=== PATIENT | female | born 1990 | race African-American/Black ===

== ENCOUNTER 2020-10-10 12:11 | Emergency (ER) | payer OTHER, SELFPAY ==
[2020-10-10 12:22] VITALS: BP 119/73; PULSE 88; RESP 18; TEMP 36.7; O2SAT 100; BMI 22.8
--- NOTE | 2020-10-10 13:50 | XR_ITS ---
EXAMINATION: XR LUMBOSACRAL SPINE CLINICAL INFORMATION: Lifting at work. Pain COMPARISON: None TECHNIQUE: Three views of the lumbosacral spine. FINDINGS: Bones are normal anatomic alignment with mild straightening of the normal lumbar lordosis. This can be seen secondary to positioning or to muscle spasm which could also create this straightening. No acute fracture or spondylolisthesis. Vertebral body heights and disc heights are preserved. Paravertebral soft tissues and bowel gas pattern unremarkable. XR/XR lumbar spine 2-3V IMPRESSION: Mild straightening of the normal lumbar lordosis possibly due to positioning or muscular spasm. No acute process otherwise.
--- NOTE | 2020-10-10 14:09 | ED.BACK ---
HPI - Back Pain/Injury General Chief Complaint: Back Pain/Injury Stated Complaint: back injury - work related Time Seen by Provider: 10/10/20 13:39 Source: patient Mode of arrival: ambulatory Limitations: no limitations History of Present Illness HPI Narrative: 29-year-old female previously healthy here with low back pain since lifting heavy box last night at work. 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 Pain does not radiate. There is no numbness or tingling. No bowel or bladder incontinence. Patient is ambulatory. No fevers or chills. No urinary symptoms MD elicited complaint: back pain Onset (ago): day(s) (<24hrs) Timing: intermittent Severity: mild Similar Symptoms Previously: No Quality: aching Location: lumbar spine Radiation: none Exacerbating factors: lifting Relieving factors: immobilization Context: while lifting Related Data Previous Rx's Medication Instructions Recorded ibuprofen 600 mg PO TID PRN #20 tab 10/10/20 lidocaine [Lidoderm] 1 patch TOPICAL DAILY #15 ea 10/10/20 Allergies Allergy/AdvReac Type Severity Reaction Status Date / Time No Known Allergies Allergy Verified 10/10/20 12:21 Review of Systems Review of Systems: Yes all other systems are reviewed and are negative Constitutional: Constitutional: Reports no additional constitutional complaints, Denies body ache(s), Denies chills, Denies fever(s), Denies headache(s) and Denies weakness Eyes: Eyes: Reports no additional eye complaints and Denies change in vision ENT: Reports system reviewed and no additional complaints, except as documented, Denies dizziness, Denies headache(s), Denies nasal congestion, Denies nasal discharge and Denies neck pain Cardiovascular: Cardiovascular: Reports no additional cardiovascular complaints, Denies chest pain, Denies leg edema and Denies dyspnea Respiratory: Respiratory: Reports no additional respiratory complaints, Denies cough and Denies dyspnea Gastrointestinal: Gastrointestinal: Reports no additional gastrointestinal complaints, Denies abdominal pain, Denies diarrhea, Denies nausea and Denies vomiting Genitourinary: Genitourinary: Reports no additional female genitourinary complaints and Denies urinary incontinence Musculoskeletal: Musculoskeletal: Reports no additional musculoskeletal complaints, Reports back pain, Denies arthralgias, Denies joint swelling, Denies neck pain, Denies numbness and Denies tingling Integumentary/Breasts: Skin/Breast: Reports system reviewed and no additional complaints, except as docu and Denies rash Neurologic: Reports system reviewed and no additional complaints, except as documented, Denies Abnormal speech present, Denies dizziness, Denies headache(s), Denies numbness, Denies tingling and Denies weakness PMFSH Past Medical History Attestation statement: The following information was validated with the patient. Source: old records reviewed and nursing notes reviewed Social History Social History Advance Directives: No Advance Directives Information Provided: Yes Physical Exam Vital Signs: Vital Signs: Last Vital Signs Temp 98.1 F 10/10/20 12:22 Pulse 88 10/10/20 12:22 Resp 18 10/10/20 12:22 BP 119/73 10/10/20 12:22 Pulse Ox 100 10/10/20 12:22 Body Mass Index 22.8 Const: General: cooperative, healthy appearing, comfortable and no acute distress Orientation/consciousness: patient oriented x3 Limitations: no limitations HENMT: Head: Yes normal to inspection Ears: hearing grossly normal bilaterally General nose exam: Normal external nose present Face and sinus: Yes normal facial exam Mouth: Normal oral and palatal mucosa present Throat: Yes posterior oropharynx normal Eyes: General: appearance normal, both eyes and all related structures Pupils: Equal, round and reactive pupils present Neck: Neck: Yes normal visual inspection Chest: Chest palpation & inspection: normal inspection of the chest Resp: Effort & Inspection: normal respiratory effort Auscultation: clear to auscultation bilaterally Cardio: Rate: regular rate Rhythm: regular rhythm Peripheral pulses: Peripheral pulses 2+ throughout GI: Inspection: Yes normal to inspection Palpation (GI): Soft to palpation and nontender Auscultation: normal bowel sounds Back/Spine/Pelvis: Other: Lumbar mild midline and moderate bilateral soft tissue tenderness. There is no step-offs or deformities. Full range of motion. Thoracic/Lumbar Spine: thoracic and lumbar spine normal to inspection Skin: General skin exam: no rashes or lesions noted Neuro: General: patient oriented x3, no focal motor deficits and normal sensation to monofilament Cranial nerves: Yes Equal, round and reactive pupils present Cognition (Neuro): normal cognition Speech: No Abnormal speech present Gait exam (Neuro): Normal gait present Motor exam (neuro): 5/5 motor strength present throughout Sensory Exam: Normal double simultaneous stimulation for sensation Deep tendon reflexes (DTR's): Right patellar reflex intensity grade: 2+, Left patellar reflex intensity grade: 2+, Right ankle reflex intensity grade: 2+ and Left ankle reflex intensity grade: 2+ Extrem: General: Yes normal to inspection Course Course Course Narrative: Low back pain status post lifting heavy object. No red flag symptoms or neurological deficits. Will check imaging 1445-x-rays negative. Likely lumbar strain. Reviewed worrisome signs and symptoms and when to return to the emergency department. Comfortable discharge home. MDM - Back Pain/Injury Medical Records Attestation: I reviewed the patient's medical records. Lab Data Attestation: I reviewed the patient's lab results. Imaging Data lumbar xray: Attestation: I personally reviewed and interpreted this imaging study as follows: Radiologist's impression: EXAMINATION: XR LUMBOSACRAL SPINE CLINICAL INFORMATION: Lifting at work. Pain COMPARISON: None TECHNIQUE: Three views of the lumbosacral spine. FINDINGS: Bones are normal anatomic alignment with mild straightening of the normal lumbar lordosis. This can be seen secondary to positioning or to muscle spasm which could also create this straightening. No acute fracture or spondylolisthesis. Vertebral body heights and disc heights are preserved. Paravertebral soft tissues and bowel gas pattern unremarkable. XR/XR lumbar spine 2-3V IMPRESSION: Mild straightening of the normal lumbar lordosis possibly due to positioning or muscular spasm. No acute process otherwise. Discharge Plan Discharge Clinical Impression: Strain of lumbar region Qualifiers: Encounter type: initial encounter Qualified Code(s): S39.012A - Strain of muscle, fascia and tendon of lower back, initial encounter Patient Disposition: Home, Self-Care Instructions: Low Back Strain (ED) Additional Instructions: Heat or ice Gentle stretching No heavy lifting or bending Try obtaining a chiroprater Prescriptions: New lidocaine [Lidoderm] 5 % adhesive patch,medicated 1 patch topical DAILY Qty: 15 RF: 0 ibuprofen 600 mg tablet 600 mg PO TID PRN (Reason: pain) Qty: 20 RF: 0 Referrals: Physician,Unknown [Primary Care Provider] - 2 days Stand Alone Forms: Work/School Release Interventions: ED Discharge Assessment Last Done: 10/10/20 15:01 Discharge Date/Time: 10/10/20 15:03
== END 2020-10-10 15:03 | disposition home or self-care (01) ==
PROVIDERS: Emergency Provider Emergency Medicine
DX: S39.012A Strain of muscle, fascia and tendon of lower back, initial encounter (principal); X50.0XXA Overexertion from strenuous movement or load, initial encounter; Y93.89 Activity, other specified; Y92.512 Supermarket, store or market as the place of occurrence of the external cause; Y99.0 Civilian activity done for income or pay
CPT/HCPCS: 72100; 99283

== ENCOUNTER 2023-12-17 08:25 | Inpatient (IN) | payer MEDICAID, SELFPAY ==
[2023-12-17] VITALS (10 sets, daily range): BP systolic 127–149; BP diastolic 74–107; PULSE 108–136; RESP 16–19; TEMP 36.2–37.1; O2SAT 98–100; BMI 21.4; BMI 20.4
--- NOTE | 2023-12-17 08:44 | ECG_ITS ---
Test Reason : OVERDOSE Blood Pressure : / mmHG Vent. Rate : 121 BPM Atrial Rate : 121 BPM P-R Int : 128 ms QRS Dur : 074 ms QT Int : 414 ms P-R-T Axes : 054 011 -09 degrees QTc Int : 587 ms Sinus tachycardia Low voltage QRS ST & T wave abnormality, consider inferior ischemia ST & T wave abnormality, consider anterolateral ischemia Abnormal ECG No previous ECGs available Referred By: Carlos Botello Electronically Signed By:ELISABET GILES
--- NOTE | 2023-12-17 08:48 | ED.OVERDOSE ---
HPI - Overdose General Chief Complaint: Overdose Stated Complaint: SEC 12, SI PER EMS Time Seen by Provider: 12/17/23 08:31 Source: patient Mode of arrival: ambulatory History of Present Illness HPI Narrative: pt presented by EMS after overdose Benadryl,she states she took #50 tablets 25 mg of Benadryl around 7:20 AM complaint: intentional overdose Onset (ago): hour(s) (1) Intent: suicide attempt Associated symptoms: depression Related Data Home Medications Medication Instructions Recorded Confirmed fluoxetine 20 mg tablet 20 mg PO DAILY 12/17/23 12/17/23 Allergies Allergy/AdvReac Type Severity Reaction Status Date / Time No Known Allergies Allergy Verified 12/17/23 09:03 Review of Systems Constitutional: Constitutional: Reports no additional constitutional complaints ENT: Reports system reviewed and no additional complaints, except as documented Cardiovascular: Cardiovascular: Reports no additional cardiovascular complaints [facility] Past Medical History [facility] Narrative: depression Source: unable to obtain Social History Social History Patient Tobacco Use Status: Never used Tobacco Smoked in Last 30 Days: No Use of substances other than those prescribed or required for medical reasons: No Advance Directives: No Advance Directives Information Provided: No Nutrition Risks: No Nutritional Risk Patient : No Physical Exam Vital Signs: Vital Signs: Last Vital Signs Temp 97.2 F 12/17/23 08:54 Pulse 116 H 12/17/23 12:49 Resp 18 12/17/23 12:49 BP 143/88 H 12/17/23 12:49 Pulse Ox 99 12/17/23 10:20 O2 Del Method Room Air 12/17/23 10:20 BMI result Body Mass Index 21.4 Const: General: cooperative and no acute distress Nutritional Appearance: average body habitus Orientation/consciousness: patient oriented x3 Limitations: no limitations HEENT: Head: Yes normal to inspection Ears: hearing grossly normal bilaterally General nose exam: Normal external nose present Face and sinus: Yes normal facial exam Mouth: Normal oral and palatal mucosa present Neck: Neck: Yes normal visual inspection Chest: Chest palpation & inspection: normal inspection of the chest Resp: Effort & Inspection: normal respiratory effort Auscultation: clear to auscultation bilaterally Cardio: Jugular venous distension: no JVD Rate: regular rate Rhythm: regular rhythm GI: Inspection: Yes normal to inspection Palpation (GI): Soft to palpation, not firm, nontender and no guarding Percussion: Yes normal to percussion Skin: General skin exam: no rashes or lesions noted and elasticity normal Neuro: General: patient oriented x3 Course Reevaluation(s) Reevaluation #1: Spoke with poison control,charcoal not given because drowsy Time: 09:19 Reevaluation #2: hallucinating now Time: 10:19 Medications Administered Generic Name Dose Route Start Last Admin Trade Name Freq PRN Reason Stop Dose Admin Enoxaparin Sodium 40 mg 12/17/23 12:15 12/17/23 12:48 Enoxaparin Sodium 40 Mg/0.4 Ml Syringe SUBCUT 40 mg Q24H YONATHAN Administration Discontinued Medications Generic Name Dose Route Start Last Admin Trade Name Freq PRN Reason Stop Dose Admin Sodium Chloride 1,000 mls @ 999 mls/hr 12/17/23 08:45 12/17/23 12:46 Ns IVCONT 12/17/23 09:45 Infused .Q1H1M YONATHAN Infusion Sodium Chloride 1,000 mls @ 999 mls/hr 12/17/23 08:45 12/17/23 10:49 Ns IVCONT 12/17/23 09:45 Infused .Q1H1M YONATHAN Infusion Sodium Chloride 1,000 mls @ 999 mls/hr 12/17/23 10:15 12/17/23 12:46 Ns IVCONT 12/17/23 11:15 999 mls/hr .Q1H1M YONATHAN Administration Magnesium Sulfate 2 gm in 50 mls @ 25 mls/hr 12/17/23 12:53 12/17/23 14:55 Magnesium Sulfate/H2o IV 12/17/23 14:52 Infused ONCE ONE Infusion Potassium Chloride 40 meq 12/17/23 12:53 12/17/23 13:02 Potassium Chloride Packet 20 Meq Packet PO 12/17/23 12:54 40 meq ONCE ONE Administration Medical Decision Making Medical Decision Making MDM Narrative: pt presented with benadryl OD will establish IV EKG/labs /fluids support care Differential Diagnosis Differential Diagnoses: The differential diagnosis associated with the presentation includes Overdose benadryl Admission/Observation Consideration of admission/observation: Escalation of care including admission/observation considered Consult Healthcare Provider Management of the patient was discussed with: Hospitalist Poison control Lab Data MDM Lab Attestation statement: I reviewed the patient's lab results. 12/17/23 09:25 12/17/23 13:34 Labs: Lab Results 12/17/23 12/17/23 Range/Units 09:25 11:58 WBC 10.8 (4.8-10.8) X10*3/uL RBC 4.94 (4.20-5.50) X10*6/uL Hgb 12.8 (12.0-16.0) g/dl Hct 40.3 (37.0-47.0) % MCV 81.6 (80.0-98.0) fL MCH 25.9 L (27.0-33.0) pg MCHC 31.8 (31.0-35.0) g/dl RDW 13.3 (11.0-16.0) % Plt Count 215 (160-400) X10*3/uL MPV 10.7 (9.4-12.3) fL Immature Gran % (Auto) 0.2 (0.0-0.4) % Neut % (Auto) 77.2 H (45-73) % Lymph % (Auto) 15.6 L (20-40) % Arthur % (Auto) 5.8 (2-11) % Eos % (Auto) 1.0 (0-4) % Baso % (Auto) 0.2 (0-2) % Lymph # (Auto) 1.7 (1.2-4.9) X10*3/uL Arthur # (Auto) 0.6 (0.1-1.2) X10*3/uL Eos # (Auto) 0.1 (0.0-0.4) X10*3/uL Baso # (Auto) 0.0 (0.0-0.2) X10*3/uL Abs Immat Gran (auto) 0.02 (0.00-0.03) X10*3/uL Absolute Neuts (auto) 8.3 (2.0-8.3) x10*3/uL Absolute Nucleated RBC 0.000 (0.0-0.012) X10*3/uL Nucleated RBC % (auto) 0.0 (0.0-0.2) /100WBC Sodium 139 (135-145) mmol/L Potassium 3.4 (3.3-5.1) mmol/L Chloride 112 H (96-108) mmol/L Carbon Dioxide 14 L (22-29) mmol/L Anion Gap 16 (12-20) BUN 12 (9-16) mg/dL Creatinine 0.73 (0.5-1.4) mg/dL Estim Creat Clear Calc 85.0 Estimated GFR > 60 Random Glucose 79 (60-115) mg/dL Calcium 8.8 (8.4-10.2) mg/dL Magnesium 1.9 (1.6-2.6) mg/dL Total Bilirubin 0.2 (0.0-1.0) mg/dL AST 34 H (5-31) U/L ALT 23 (0-31) U/L Alkaline Phosphatase 66 (39-117) U/L Total Protein 7.0 (6.5-8.0) g/dL Albumin 3.7 (3.5-5.0) g/dL Beta HCG, Quant < 2 mIU/mL Salicylates < 5.0 L (15-30) mg/dL Urine Opiates Screen Not Detected (Not Detect) Urine Fentanyl Screen Not Detected (Not Detect) Acetaminophen < 3 (<30) mcg/mL Ur Barbiturates Screen Not Detected (Not Detect) Ur Phencyclidine Scrn Not Detected (Not Detect) Ur Amphetamines Screen Not Detected (Not Detect) U Benzodiazepines Scrn Not Detected (Not Detect) Urine Cocaine Screen Not Detected (Not Detect) U Marijuana (THC) Screen Not Detected (Not Detect) Ethyl Alcohol < 10 mg/dL Independent Interpretation I performed an independent interpretation of an: EKG Interpretation: sinus tachycardia Independent Historian Clinical information obtained from an independent historian. History obtained from or confirmed by: EMS Critical Care Time Critical Care Time Critical Care Time: Yes Total Critical Care Time: 60 Attestation: Benadryl OD with metabolic acidosis Discharge Plan Discharge Clinical Impression: Metabolic acidosis Intentional diphenhydramine overdose Qualifiers: Encounter type: initial encounter Qualified Code(s): T45.0X2A - Poisoning by antiallergic and antiemetic drugs, intentional self-harm, initial encounter Patient Disposition: Admitted As Inpatient
[2023-12-17] MEDS: 0.9 % Sodium Chloride 1,000 ML 999 ML IVCONT ×3 (09:25→12:46)
--- NOTE | 2023-12-17 09:27 | PC.NURSE ---
pt is alert but drowsy, pt was able to state she was in [place] but not able to state that it was a hospital, knew that it is Feb, pupils pin point, skin appropriate for ethnicity, respirations even and unlabored, tachy on the monitor at about 124, pt did state she took about 50 tabs of 25mg Benadryl in the intent of suicidal ideation, reports stress at home, pt changed over by security and belongings secured in locker 4, sitter in place.
[2023-12-17 09:33] LABS: MANUAL DIFF FLAG NO
[2023-12-17 09:35] LABS: Basophils Percent Auto 0.2 % (0-2); Eosinophils Absolute Auto 0.1 X10*3/uL (0.0-0.4); Hematocrit 40.3 % (37.0-47.0); Hemoglobin 12.8 g/dl (12.0-16.0); Imm Gran Abs Auto 0.02 X10*3/uL (0.00-0.03); Imm Gran Pct Auto 0.2 % (0.0-0.4); Lymphocytes Absolute Auto 1.7 X10*3/uL (1.2-4.9); Lymphocytes Percent Auto 15.6 % (20-40); Mean Corpuscular HGB Conc 31.8 g/dl (31.0-35.0); Mean Corpuscular Hemoglobin 25.9 pg (27.0-33.0); Mean Corpuscular Volume 81.6 fL (80.0-98.0); Mean Platelet Volume 10.7 fL (9.4-12.3); Monocytes Absolute Auto 0.6 X10*3/uL (0.1-1.2); Monocytes Percent Auto 5.8 % (2-11); Neutrophils Absolute Auto 8.3 x10*3/uL (2.0-8.3); Neutrophils Percent Auto 77.2 % (45-73); Platelet Count 215 X10*3/uL (160-400); Red Blood Count 4.94 X10*6/uL (4.20-5.50); Red Cell Distribution Width 13.3 % (11.0-16.0); White Blood Count 10.8 X10*3/uL (4.8-10.8)
[2023-12-17 09:53] LABS: Acetaminophen LAB < 3 mcg/mL (<30); Salicylate < 5.0 mg/dL (15-30)
[2023-12-17 09:56] LABS: Magnesium 1.9 mg/dL (1.6-2.6)
--- NOTE | 2023-12-17 10:21 | PC.NURSE ---
pt is alert but sluggish to answer questions, appears slightly confused and possibly hallucinating, grabbing at things at times according to the sitter and just looking around very confused
[2023-12-17 10:37] LABS: Alanine Aminotransferase 23 U/L (0-31); Albumin Level 3.7 g/dL (3.5-5.0); Alkaline Phosphatase 66 U/L (39-117); Anion Gap 16 (12-20); Aspartate Amino Transferase 34 U/L (5-31); Bilirubin Total 0.2 mg/dL (0.0-1.0); Blood Urea Nitrogen 12 mg/dL (9-16); Calcium 8.8 mg/dL (8.4-10.2); Carbon Dioxide 14 mmol/L (22-29); Chloride 112 mmol/L (96-108); Estimated Glomerular Filt Rate > 60; Ethanol < 10 mg/dL; Glucose Random 79 mg/dL (60-115); HCG Quantitative < 2 mIU/mL; Potassium 3.4 mmol/L (3.3-5.1); Sodium 139 mmol/L (135-145)
--- NOTE | 2023-12-17 10:39 | ECG_ITS ---
Test Reason : OVERDOSE Blood Pressure : / mmHG Vent. Rate : 122 BPM Atrial Rate : 122 BPM P-R Int : 128 ms QRS Dur : 070 ms QT Int : 412 ms P-R-T Axes : 065 056 -03 degrees QTc Int : 587 ms Sinus tachycardia Low voltage QRS Diffuse ST depression inferior and anterolateral leads Abnormal ECG When compared with ECG of 17-DEC-2023 08:56, No significant changes seen Referred By: Carlos Botello Electronically Signed By:ELISABET GILES
--- NOTE | 2023-12-17 11:19 | PHA.MEDREC ---
Pharmacy Consult ? Medication Reconciliation Pharmacy has completed the medication reconciliation.
--- NOTE | 2023-12-17 11:25 | PC.NURSE ---
pt reporting that she needs to ambulated the pt with with two assists, pt very unstable/shaky on her feet, was unable to urinate, did a bladder scan and 722, attempting a straight cath per aslhley admitting PA
[2023-12-17 12:13] LABS: Amphetamine Screen Urine Not Detected (Not Detect); Barbiturates, Urine Not Detected (Not Detect); Benzodiazepines Screen Urine Not Detected (Not Detect); Cannabinoid Screen Urine Not Detected (Not Detect); Cocaine Screen Urine Not Detected (Not Detect); Fentanyl, urine Not Detected (Not Detect); Opiate Screen Urine Not Detected (Not Detect); Phencyclidine Screen Urine Not Detected (Not Detect)
--- NOTE | 2023-12-17 12:16 | PM.IMHP ---
History of Present Illness Date of Service: 12/17/23 Attending physician on admission: [facility] Chief Complaint: suicide attempt 33 year old female with history of MDD presented to the ED earlier today following an intentional benadryl overdose this morning at around 730am. The patient is somewhat confused and appears to be hallucinating, though denies this, and states she has been depressed for about a month with increased stress and attempted to take her life this morning. She denies any pain at this time and has no complaints. On arrival tachycardic to the 120s, afebrile, no hypotension or hypoxia. Hematology studies unremarkable. Renal function normal, electrolyte levels normal except for bicarb 14, chloride 112. Urine tox screen negative, ethyl alcohol level below detectable limits salicylic level below detectable limits. Acetaminophen level negative. Initial EKG showed sinus tachycardia, rate 121, no jazz or depression. Repeat EKG showed sinus tachycardia, rate 122, with nonspecific t wave abnormality which replaced the minimal t wave inversions in initial ekg. In the ED, received 2 L IV NS. Bladder scan reveal >800ml and was straight cath'd in the ED. Does express sensation to urinate. Poison control was contacted recommending activated charcoal but at the time, pt was too lethargic for administrationa nd supportive care was advised. Review of Systems Review of Systems: General: No fevers, malaise, unintentional weight loss HEENT: No blurred vision, diplopia. No sore throat, nasal congestion, rhinorrhea, sinus pain, ear pain Cardiovascular: No chest pain, palpitations, or leg edema Respiratory: No shortness of breath, wheezing, cough GI: No abdominal pain, nausea, vomiting, diarrhea, constipation, melena, hematochezia : No dysuria, hematuria, increased urinary frequency, decreased urinary output MSK: No myalgia, back pain Neuro: No headaches, weakness, paresthesias Skin: No rashes or lesions PMFSH Social History Household Members: Family Housing: House Comment: 1:[address] Patient Tobacco Use Status: Never used Tobacco Meds Allergies Allergy/AdvReac Type Severity Reaction Status Date / Time No Known Allergies Allergy Verified 12/17/23 09:03 Active Medications: Current Medications Acetaminophen (Acetaminophen 325 Mg Tablet) 650 mg PO Q6H PRN PRN Reason: Pain, Mild (Pain Scale 1-3) Enoxaparin Sodium (Enoxaparin Sodium 40 Mg/0.4 Ml Syringe) 40 mg SUBCUT Q24H [facility] Fluoxetine HCl (Fluoxetine Hcl 20 Mg Capsule) 20 mg PO DAILY [facility] Sodium Chloride (Ns) 1,000 mls @ 100 mls/hr IVCONT .Q10H [facility] Ondansetron HCl (Ondansetron Hcl 4 Mg/2 Ml Vial) 4 mg IVPUSH Q8H PRN PRN Reason: Nausea and Vomiting Senna (Sennosides 8.6 Mg Tablet) 17.2 mg PO BEDTIME PRN PRN Reason: Constipation Sodium Chloride (0.9 % Sodium Chloride Flush 3 Ml Syringe) 3 ml IVFLUSH QSHIFT [facility] Home Medications Medication Instructions Recorded Confirmed Last Taken Type fluoxetine 20 mg tablet 20 mg PO DAILY 12/17/23 12/17/23 Unknown History Physical Exam Vital Signs and Narrative: Vital Signs: Last Vital Signs Temp 97.2 F 12/17/23 08:54 Pulse 124 H 12/17/23 10:20 Resp 18 12/17/23 10:20 BP 127/74 12/17/23 10:20 Pulse Ox 99 12/17/23 10:20 O2 Del Method Room Air 12/17/23 10:20 BMI result Body Mass Index 21.4 Constitutional - Awake and Alert, No apparent distress Eyes - PERRLA, EOMI Cardiovascular - S1S2, RRR, No edema Respiratory - Normal lung expansion, Normal respiratory effort, No respiratory distress, CTA bilaterally Gastrointestinal - NT / ND; +BS; No rebound or guarding Extremities - no calf tenderness bilaterally, no swelling Skin - Warm/Dry Neurological - Alert & oriented x3, hyperalert, appears to be hallucinating visually but denies, moderately dilated pupils, nystagmus in all directions, CN palsy, diffuse tremors Results Labs 12/18/23 08:33 12/18/23 08:33 Labs: Laboratory Results - last 24 hr 12/17/23 12/17/23 09:25 11:58 MCV 81.6 MCH 25.9 L MCHC 31.8 RDW 13.3 Plt Count 215 MPV 10.7 Immature Gran % (Auto) 0.2 Neut % (Auto) 77.2 H Lymph % (Auto) 15.6 L [place] % (Auto) 5.8 Eos % (Auto) 1.0 Baso % (Auto) 0.2 Lymph # (Auto) 1.7 [place] # (Auto) 0.6 Eos # (Auto) 0.1 Baso # (Auto) 0.0 Abs Immat Gran (auto) 0.02 Absolute Neuts (auto) 8.3 Absolute Nucleated RBC 0.000 Nucleated RBC % (auto) 0.0 Anion Gap 16 Estim Creat Clear Calc 85.0 Estimated GFR > 60 Random Glucose 79 Calcium 8.8 Magnesium 1.9 Total Bilirubin 0.2 AST 34 H ALT 23 Alkaline Phosphatase 66 Total Protein 7.0 Albumin 3.7 Beta HCG, Quant < 2 Salicylates < 5.0 L Urine Opiates Screen Not Detected Urine Fentanyl Screen Not Detected Acetaminophen < 3 Ur Barbiturates Screen Not Detected Ur Phencyclidine Scrn Not Detected Ur Amphetamines Screen Not Detected U Benzodiazepines Scrn Not Detected Urine Cocaine Screen Not Detected U Marijuana (THC) Screen Not Detected Ethyl Alcohol < 10 Assessment and Plan (1) Anticholinergic drug overdose: Status: Acute (2) Metabolic acidosis: Status: Acute (3) Toxic metabolic encephalopathy: Status: Acute (4) Prolonged QT interval: Status: Acute Plan 33 year old female with history of MDD presented to the ED earlier today following an intentional benadryl overdose this morning at around 730am. Pt will be admitted for acute anticholinergic toxicity secondary to benadryl overdose. #Acute anticholinergic toxicity due to intentional bendryl od @730am -Activated charcoal deferred due to lethargy, now outside window. Supportive care per poison control -EKG x2 showed stable, though prolonged QTc 587 -Check EKG q4h -1mg lorazepam q4h prn tremors/aggitation -monitor on telemetry -psychiatry consult -sitter consult -seizure precautions #Prolonged Qtc -Initial and repeat EKG with Qtc 587 -Keep mag >2, K >4.0. Give 2mg IV mag and 40meq PO KCl now. Recheck ekg @230pm per poison control -seizure precautions -monitor on telemetry #Acute neurogenic bladder -due to above -bladder scan >800ml in ED, straight cath performed -does feel feel like she needs to urinate. Will hold on suarez at this time. Bladder scan and straight cath qshift prn >500ml -Consider suarez if not improving #Acute toxic metabolic encephalopathy -due to above -monitor mentation #Acute metabolic acidosis -CO2 14. Received 2L IV NS -Repeat BMP and VBG pending -Continue IV NS -follow bmp #MDD -psychiatry consult -continue prozac DVT prophylaxis- lovenox full code pt requires inpt stay at least 2 midnight for management of acute anticholinergic toxicity with neurogenic bladder, prolonged qtc, and AMS requiring close monitoring of qtc, I&O, renal fx/lytes, and eventual transfer to psychiatry once medically cleared Quality Stroke Does the patient have a stroke diagnosis?: No VTE Prior VTE?: No VTE Risk Level:: Medical - moderate - high VTE Device Contraindication: Treatment Not Indicated VTE Drug Contraindication: N/A - Med Ordered
[2023-12-17] MEDS: Enoxaparin Sodium 40 MG/0.4 ML SYRINGE SUBCUT (12:48)
[2023-12-17] MEDS: Magnesium Sulfate/H2O 2 GM/50 ML PIGGYBACK IV (13:02)
[2023-12-17] MEDS: Potassium Chloride Packet 20 MEQ PACKET 40 MEQ PO ×2 (13:02→16:55)
--- NOTE | 2023-12-17 13:16 | PC.NURSE ---
spoke to tete from poison control, recommends to repeat ekg around 1430 after the mag 2g infused and to start benzodiazepines
[2023-12-17 13:43] LABS: Venous Blood Gas Refer to POC result
[2023-12-17 13:43] LABS: VBG Base Excess -5.7 mmol/L; VBG HCO3 20 mmol/L (22-26); VBG pCO2 43 mmHg; VBG pH 7.28 (7.32-7.43); VBG pO2 39 mmHg
[2023-12-17 14:01] LABS: Anion Gap 13 (12-20); Blood Urea Nitrogen 9 mg/dL (9-16); Calcium 9.3 mg/dL (8.4-10.2); Carbon Dioxide 20 mmol/L (22-29); Chloride 113 mmol/L (96-108); Creatinine Clr Calc Pharmacy 86.2; Estimated Glomerular Filt Rate > 60; Glucose Random 111 mg/dL (60-115); Potassium 3.5 mmol/L (3.3-5.1); Sodium 142 mmol/L (135-145)
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
[2023-12-17] MEDS: Lactated Ringers 1,000 ML 100 ML IVCONT (15:12)
[2023-12-17] MEDS: LORazepam 2 MG/ML VIAL 1 MG IVPUSH ×3 (15:23→23:01)
--- NOTE | 2023-12-17 15:25 | PC.NURSE ---
pt medicated with ativan as ordered, pt extremely fidgety, pulling on blankets and other staff members reporting that pt is having visual hallucination josue
[2023-12-17] MEDS: 0.9 % Sodium Chloride Flush 3 ML SYRINGE IVFLUSH (15:29)
--- NOTE | 2023-12-17 16:00 | ECG_ITS ---
Test Reason : benadryl od Blood Pressure : / mmHG Vent. Rate : 109 BPM Atrial Rate : 109 BPM P-R Int : 142 ms QRS Dur : 064 ms QT Int : 296 ms P-R-T Axes : 046 003 010 degrees QTc Int : 398 ms Sinus tachycardia Low voltage QRS Borderline ECG No significant changes when compared with the previous EKG of same day Referred By: Angeles Sylvester Electronically Signed By:ELISABET GILES
--- NOTE | 2023-12-17 16:17 | MHC.EDTECH ---
Patient ekg taken at 1612 and was read by Provider .
[2023-12-17] MEDS: Potassium Chloride/H20 10 MEQ/100 ML PIGGYBACK 100 MEQ IV ×2 (16:55→20:14)
--- NOTE | 2023-12-17 17:03 | PC.NURSE ---
attempting to do the columbia scale, when pt is asked is she would like to killl herself or pt states it could be yes, it could be no unable to perform an accurate evaluation, pt also appears to have increased visual hallucinations pt was put on a bed barry still unable to void bladder scan performed and 578ml, van mitchell aware
--- NOTE | 2023-12-17 20:00 | ECG_ITS ---
Test Reason : benadryl od Blood Pressure : / mmHG Vent. Rate : 103 BPM Atrial Rate : 103 BPM P-R Int : 136 ms QRS Dur : 070 ms QT Int : 366 ms P-R-T Axes : 049 -04 018 degrees QTc Int : 479 ms Sinus tachycardia Low voltage QRS Borderline ECG No previous ECGs available Referred By: Angeles Sylvester Electronically Signed By:ELISABET GILES
[2023-12-18] VITALS (7 sets, daily range): BP systolic 119–140; BP diastolic 77–94; PULSE 91–107; RESP 16–20; TEMP 36.8–37.3; O2SAT 96–100
[2023-12-18] MEDS: LORazepam 2 MG/ML VIAL 1 MG IVPUSH ×3 (02:27→07:18)
[2023-12-18] MEDS: Lactated Ringers 1,000 ML 100 ML IVCONT ×3 (07:18→23:47)
[2023-12-18] MEDS: FLUoxetine HCl 20 MG CAPSULE PO (08:27)
[2023-12-18 08:49] LABS: MANUAL DIFF FLAG NO
[2023-12-18 08:52] LABS: Basophils Percent Auto 0.1 % (0-2); Eosinophils Percent Auto 0.2 % (0-4); Hematocrit 40.9 % (37.0-47.0); Hemoglobin 13.5 g/dl (12.0-16.0); Imm Gran Abs Auto 0.04 X10*3/uL (0.00-0.03); Imm Gran Pct Auto 0.3 % (0.0-0.4); Lymphocytes Absolute Auto 1.5 X10*3/uL (1.2-4.9); Lymphocytes Percent Auto 12.2 % (20-40); Mean Corpuscular Hemoglobin 26.3 pg (27.0-33.0); Mean Corpuscular Volume 79.6 fL (80.0-98.0); Mean Platelet Volume 10.1 fL (9.4-12.3); Monocytes Absolute Auto 0.7 X10*3/uL (0.1-1.2); Monocytes Percent Auto 5.9 % (2-11); Neutrophils Absolute Auto 9.7 x10*3/uL (2.0-8.3); Neutrophils Percent Auto 81.3 % (45-73); Platelet Count 254 X10*3/uL (160-400); Red Blood Count 5.14 X10*6/uL (4.20-5.50); Red Cell Distribution Width 13.8 % (11.0-16.0)
[2023-12-18 09:12] LABS: Anion Gap 13 (12-20); Blood Urea Nitrogen 5 mg/dL (9-16); Calcium 10.9 mg/dL (8.4-10.2); Carbon Dioxide 21 mmol/L (22-29); Chloride 109 mmol/L (96-108); Creatinine Clr Calc Pharmacy 79.6; Estimated Glomerular Filt Rate > 60; Glucose Random 60 mg/dL (60-115); Sodium 139 mmol/L (135-145)
--- NOTE | 2023-12-18 10:15 | ECG_ITS ---
Test Reason : qtc check, od Blood Pressure : / mmHG Vent. Rate : 107 BPM Atrial Rate : 107 BPM P-R Int : 124 ms QRS Dur : 064 ms QT Int : 306 ms P-R-T Axes : 042 -10 020 degrees QTc Int : 408 ms Sinus tachycardia Low voltage QRS Borderline ECG When compared with ECG of 18-DEC-2023 06:09, No significant change was found Referred By: Chong [facility] Electronically Signed By:ELISABET GILES
[2023-12-18] MEDS: Enoxaparin Sodium 40 MG/0.4 ML SYRINGE SUBCUT (11:39)
--- NOTE | 2023-12-18 12:00 | ECG_ITS ---
Test Reason : benadryl od Blood Pressure : / mmHG Vent. Rate : 107 BPM Atrial Rate : 107 BPM P-R Int : 144 ms QRS Dur : 066 ms QT Int : 316 ms P-R-T Axes : 042 002 032 degrees QTc Int : 421 ms Sinus tachycardia Low voltage QRS Nonspecific T wave abnormality Abnormal ECG No previous ECGs available Referred By: Angeles Sylvester Electronically Signed By:ELISABET GILES
--- NOTE | 2023-12-18 12:58 | MHC.CM.PN ---
Pt. said that she lives here when I asked where she lives, she said she lives with her mom. Call placed to pt.'s mother, Kyra Lucio, no answer. Pt. independent with ADL's, DC plan may be for psych admission. CM to follow for DC planning.
--- NOTE | 2023-12-18 13:26 | MHC.CM.PN ---
Pt said that PCP is Dr. Gomez in [place], CM contacted PCP office in [place] to determine if PCP is Yassine Gomez, pt. does not see any doctor in that office. CM to determine from pt or pt mother who PCP is.
--- NOTE | 2023-12-18 16:43 | P.PNIM_ITS ---
Subjective Subjective Date of Service: 12/19/23 Interval History: f/u on intentional overdose with benadryl, QTC is Ok per serial ECG, a bit drousy but alert Physical Exam 2 Vital Signs: Vital Signs: Last Vital Signs Temp 98.4 F 12/18/23 15:43 Pulse 100 12/18/23 15:43 Resp 20 12/18/23 15:43 BP 125/83 12/18/23 15:43 Pulse Ox 100 12/18/23 15:43 O2 Del Method Room Air 12/18/23 15:43 BMI result Body Mass Index 20.4 General: AO X 3, no acute distress Resp: CTA bilateral CVS: S1,S2,RRR GI: +BS, NT, no distention Skin: No rash Neuro: motor grossly intact Psych: appropriate affect Objective Data Active Medications Acetaminophen (Acetaminophen 325 Mg Tablet) 650 mg PO Q6H PRN PRN Reason: Pain, Mild (Pain Scale 1-3) Enoxaparin Sodium (Enoxaparin Sodium 40 Mg/0.4 Ml Syringe) 40 mg SUBCUT Q24H [facility] Last Admin: 12/18/23 11:39 Dose: 40 mg Documented By: MELISA Fluoxetine HCl (Fluoxetine Hcl 20 Mg Capsule) 20 mg PO DAILY [facility] Last Admin: 12/18/23 08:27 Dose: 20 mg Documented By: MELISA Lactated Ringer's (Lr) 1,000 mls @ 100 mls/hr IVCONT .Q10H [facility] Last Admin: 12/18/23 15:27 Dose: 100 mls/hr Documented By: MELISA Lorazepam (Lorazepam 2 Mg/Ml Vial) 1 mg IVPUSH Q2H PRN PRN Reason: tremors/aggitation Last Admin: 12/18/23 07:18 Dose: 1 mg Documented By: KIMBERLEY Ondansetron HCl (Ondansetron Hcl 4 Mg/2 Ml Vial) 4 mg IVPUSH Q8H PRN PRN Reason: Nausea and Vomiting Senna (Sennosides 8.6 Mg Tablet) 17.2 mg PO BEDTIME PRN PRN Reason: Constipation Sodium Chloride (0.9 % Sodium Chloride Flush 3 Ml Syringe) 3 ml IVFLUSH QSHIFT [facility] Last Admin: 12/18/23 15:19 Dose: Not Given Documented By: MELISA Non-Admin Reason: IV Running Labs 12/18/23 08:33 12/18/23 08:33 Labs: Laboratory Results - last 24 hr 12/18/23 08:33 MCV 79.6 L MCH 26.3 L MCHC 33.0 RDW 13.8 Plt Count 254 MPV 10.1 Immature Gran % (Auto) 0.3 Neut % (Auto) 81.3 H Lymph % (Auto) 12.2 L [place] % (Auto) 5.9 Eos % (Auto) 0.2 Baso % (Auto) 0.1 Lymph # (Auto) 1.5 [place] # (Auto) 0.7 Eos # (Auto) 0.0 Baso # (Auto) 0.0 Abs Immat Gran (auto) 0.04 H Absolute Neuts (auto) 9.7 H Absolute Nucleated RBC 0.000 Nucleated RBC % (auto) 0.0 Anion Gap 13 Estim Creat Clear Calc 79.6 Estimated GFR > 60 Random Glucose 60 Calcium 10.9 H D Assessment and Plan (1) Delirium: Status: Acute (2) Prolonged QT interval: Status: Acute (3) Toxic metabolic encephalopathy: Status: Acute Plan 33 year old female with history of MDD presented to the ED earlier today following an intentional benadryl overdose this morning at around 730am. Pt will be admitted for acute anticholinergic toxicity secondary to benadryl overdose. #Acute anticholinergic toxicity due to intentional bendryl od @730am with prolonged qtc, which is now down, she is now alert and oriented #Prolonged Qtc-- resolved, last qtc 421 #Acute neurogenic bladder -d/t above resolved #Acute toxic metabolic encephalopathy -due to above, resolved #Acute metabolic acidosis, --resolved -CO2 14 initially. Received 2L IV NS -recent bicab 21 #MDD -psychiatry consult -continue prozac -CARE consult for inpatient treatment DVT prophylaxis- lovenox full code neeed for inpateint: need eval for inpatient psych d/t si with od Quality Stroke Does the patient have a stroke diagnosis?: No VTE Prior VTE?: No VTE Risk Level:: Medical - moderate - high VTE Device Contraindication: Treatment Not Indicated VTE Drug Contraindication: N/A - Med Ordered
[2023-12-18] MEDS: 0.9 % Sodium Chloride Flush 3 ML SYRINGE IVFLUSH ×2 (23:48)
[2023-12-19 03:28] VITALS: BP 117/74; PULSE 97; RESP 16; TEMP 36.6; O2SAT 98
[2023-12-19 07:21] VITALS: BP 116/73; PULSE 95; RESP 20; TEMP 36.9; O2SAT 98
[2023-12-19] MEDS: FLUoxetine HCl 20 MG CAPSULE PO (08:13)
[2023-12-19] MEDS: 0.9 % Sodium Chloride Flush 3 ML SYRINGE IVFLUSH (08:14)
--- NOTE | 2023-12-19 10:18 | PM.DS ---
DS: Providers Provider Date of Service: 12/19/23 Date of admission: 12/17/23 12:07 Primary care physician: Unknown Physician Consults: 12/17/23 12:15 Consult for Sitter Routine Reason for consultation: SI, OD Consult to Psychiatry Routine Consulting Provider: Psych Covering Reason for consultation: depression, OD benadryl 12/18/23 10:02 Consult to Care Team Routine Comment: Reason for consultation: Overdose, medically ready for discharge DS: Diagnosis Discharge Diagnosis (1) Anticholinergic drug overdose: Status: Acute (2) Metabolic acidosis: Status: Acute (3) Toxic metabolic encephalopathy: Status: Acute (4) Prolonged QT interval: Status: Acute DS: Summary Hospital Course Hospital Course: admission hpi Chief Complaint: suicide attempt 33 year old female with history of MDD presented to the ED earlier today following an intentional benadryl overdose this morning at around 730am. The patient is somewhat confused and appears to be hallucinating, though denies this, and states she has been depressed for about a month with increased stress and attempted to take her life this morning. She denies any pain at this time and has no complaints. On arrival tachycardic to the 120s, afebrile, no hypotension or hypoxia. Hematology studies unremarkable. Renal function normal, electrolyte levels normal except for bicarb 14, chloride 112. Urine tox screen negative, ethyl alcohol level below detectable limits salicylic level below detectable limits. Acetaminophen level negative. Initial EKG showed sinus tachycardia, rate 121, no jazz or depression. Repeat EKG showed sinus tachycardia, rate 122, with nonspecific t wave abnormality which replaced the minimal t wave inversions in initial ekg. In the ED, received 2 L IV NS. Bladder scan reveal >800ml and was straight cath'd in the ED. Does express sensation to urinate. Poison control was contacted recommending activated charcoal but at the time, pt was too lethargic for administrationa nd supportive care was advised. hospital course. 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 She was hydrated and monitored on telemetry and had serial ECG and at the present time, QTc is now normal, tachycardia is resolved and she lucid. She still has SI and CARE team is recommending inpatient treatment for depression and SI Time Attestation Discharge coordination time: Greater than 30 minutes Quality: Safe Use of Opioids Does Pt have an Active Cancer Diagnosis on the Problem List?: No Quality: Stroke Does the patient have a stroke diagnosis?: No Physical Exam Vital Signs: Vital Signs: Last Vital Signs Temp 98.5 F 12/19/23 07:21 Pulse 95 12/19/23 07:21 Resp 20 12/19/23 07:21 BP 116/73 12/19/23 07:21 Pulse Ox 98 12/19/23 07:21 O2 Del Method Room Air 12/19/23 07:21 BMI result Body Mass Index 20.4 Discharge Plan Discharge Anticipated Discharge Date/Time: 12/19/23 15:18 Patient Disposition: Xfer Psychiatric Hosp Discharge Diagnosis: Intentional Benadryl overdose Referrals: Physician,Unknown J [Primary Care Provider] - 1 Week Discharge Medications: Continued fluoxetine 20 mg tablet 20 mg PO DAILY Discharge Orders: Discharge Order (Routine); Ordered 12/19/23 Ordered By: Chong Contreras Diet: Advance to usual diet Activity on Discharge: As tolerated Stand Alone Forms: Patient Portal Discharge page Health Concerns: Depression , Suicide attempt Plan of Treatment: inpatient Psych hospitalization and treatment
[2023-12-19 10:56] LABS: COVID-19 Test Negative (Negative); IDNOW Serial# 08D9AD1C
[2023-12-19 11:18] VITALS: BP 121/80; PULSE 90; RESP 20; TEMP 37.1; O2SAT 97
[2023-12-19] MEDS: Enoxaparin Sodium 40 MG/0.4 ML SYRINGE SUBCUT (12:52)
--- NOTE | 2023-12-19 14:54 | MHC.CM.PN ---
EMR reviewed and per MD rounds, pt is medically cleared for D/C to inpatient psych unit.
[2023-12-19 15:34] VITALS: BP 120/73; PULSE 99; RESP 19; TEMP 36.8; O2SAT 97
[2023-12-19 19:31] VITALS: BP 111/63; PULSE 94; RESP 20; TEMP 36.8; O2SAT 97
== END 2023-12-19 20:16 | DRG 812 ==
LOC: HO.ED 10:54 → HO.EDOVER 12:20 → HO.IMC 18:37
PROVIDERS: Admitting Provider Physician Assistant; Emergency Provider Emergency Medicine; Visit Provider Internal Medicine
DX: T45.0X1A Poisoning by antiallergic and antiemetic drugs, accidental (unintentional), initial encounter (principal); G92.8 Other toxic encephalopathy; E87.21 Acute metabolic acidosis; N31.8 Other neuromuscular dysfunction of bladder; F32.9 Major depressive disorder, single episode, unspecified; R94.31 Abnormal electrocardiogram [ECG] [EKG]; F43.10 Post-traumatic stress disorder, unspecified; Z20.822 Contact with and (suspected) exposure to COVID-19; Z79.899 Other long term (current) drug therapy
CPT/HCPCS: 36415; 80048; 80053; 80143; 80179; 80307; 82803; 83735; 84702; 85025; 87635; 93005; 99285; C1758; J1650; J2060; J3475; J3480; J7120; S9485

== ENCOUNTER → 2023-12-17 08:44 | Outpatient (BNV) | payer OTHER, SELFPAY | PROVIDERS: Admitting Provider Physician Assistant; Emergency Provider Emergency Medicine; Visit Provider Internal Medicine | DX: R00.0 Tachycardia, unspecified (principal) | CPT/HCPCS: 93010 ==

== ENCOUNTER 2023-12-17 12:07 | Outpatient (BNV) | payer OTHER, MEDICAID, SELFPAY | END 2023-12-18 12:00 | PROVIDERS: Admitting Provider Physician Assistant; Emergency Provider Emergency Medicine; Visit Provider Internal Medicine | DX: R00.0 Tachycardia, unspecified (principal); R94.31 Abnormal electrocardiogram [ECG] [EKG] | CPT/HCPCS: 93010 ==

== ENCOUNTER → 2023-12-17 12:07 | Outpatient (BNV) | payer OTHER, SELFPAY | PROVIDERS: Admitting Provider Physician Assistant; Emergency Provider Emergency Medicine; Visit Provider Psychiatry & Neurology Psychiatry | DX: F33.2 Major depressive disorder, recurrent severe without psychotic features (principal); T44.3X2A Poisoning by other parasympatholytics [anticholinergics and antimuscarinics] and spasmolytics, intentional self-harm, initial encounter; G92.8 Other toxic encephalopathy; R41.0 Disorientation, unspecified | CPT/HCPCS: 99222 ==

== ENCOUNTER → 2023-12-17 12:07 | Outpatient (BNV) | payer MEDICAID, SELFPAY | PROVIDERS: Admitting Provider Physician Assistant; Emergency Provider Emergency Medicine; Visit Provider Internal Medicine | DX: T44.3X1A Poisoning by other parasympatholytics [anticholinergics and antimuscarinics] and spasmolytics, accidental (unintentional), initial encounter (principal); E87.20 Acidosis, unspecified; G92.8 Other toxic encephalopathy; I45.81 Long QT syndrome | CPT/HCPCS: 99223; 99232; 99238 ==

== ENCOUNTER 2023-12-19 20:41 | Inpatient (IN) | payer MEDICAID, OTHER, SELFPAY ==
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
[2023-12-20 08:47] VITALS: BP 107/61; PULSE 98; RESP 16; TEMP 36; O2SAT 97
--- NOTE | 2023-12-20 10:02 | HO.PSYADMNOT ---
HPI Date of Service: 12/20/23 Chief Complaint: SI Sources of Information: patient interviewed, chart reviewed and crisis/core team assessment reviewed HPI Subjective Notes: Celeste Warning and Conditional Voluntary Narrative: Patient is a 33-year-old female with history of PTSD, anxiety and depression who presents following suicide attempt via overdose, step-down from medical floor, in the face of stress of losing beloved job. Patient reports that despite anxiety/mild depression, Prozac 20 mg has been sufficient. Patient works 3rd shift at [employer] for the past 7 years; although work has been stressful since there is a small clique that bullies peers, she has otherwise truly enjoyed working there feeling as it has been a 2nd family to her. Patient reports that a few months ago she climbed up on a Rafter to fix something, which was against policy and considered unsafe; at that time the incident was discussed with security/management to she apologized; nothing more was set about it and patient reports that except for this 1 incident, she has a very strong work record which management acknowledged. 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 They gave no other reason for her firing. Patient said she always feared being fired and had had a plan in place should this occur. She immediately went home, took an overdose of Benadryl and started walking out into traffic, picked up by police who brought her to ED. Although at the time she wanted to , she says she is very glad she is alive now and feels badly that she has worried her mother with whom she is close. She says she will never attempt suicide again, having tried once before year ago followed another work-related stressful event. Patient feels that Prozac 20 mg has been overall helpful enough and does not want to increase; she does not want therapy, saying she does not want to talk to a stranger about her problems. Patient endorses history of trauma and subsequent hypervigilance; denies any AVH or paranoid delusional thinking (and none could be solicited); denies any HI, manic episodes or drug/alcohol abuse. She reiterates that this incident has passed, she does not want to hurt herself at all and his asking for discharge. Past Psychiatric History: hosps: 1 prior psych hospitalization at [facility] March 2023 for suicide attempt by overdose SA: Reports 2 attempts by overdose SIB: denies. HIB: denies. 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) lives w/ mother with whom she is close GED, no college older sister 12/20 about 7 years ago one living sister and 2 brothers Substance History: denies Trauma History: Endorses hx of trauma but did not want to discuss Diagnostics Vital Signs (24Hr): Vital Signs - 24 hr 12/20/23 08:47 Temperature 96.8 F Pulse Rate 98 Respiratory Rate 16 Blood Pressure 107/61 Pulse Oximetry 97 Oxygen Delivery Method Room Air Meds/Allergies Meds Home Medications Medication Instructions Recorded Confirmed Type fluoxetine 20 mg tablet 20 mg PO DAILY 12/17/23 12/20/23 History Allergies Allergies Allergy/AdvReac Type Severity Reaction Status Date / Time No Known Allergies Allergy Verified 12/17/23 09:03 Mental Status Exam Mental Status Exam Narrative: Pt is alert and oriented; behavior is cooperative, friendly and calm; patient is not in distress; dressed in casual attire with unkempt hair but adequate hygiene; mood is described as good and affect congruent; eye contact appropriate; Speech is normal rate, volume and prosody and not pressured; no psychomotor agitation/retardation present; thought process is organized and goal directed; Thought content is on tx; otherwise pertinent to relevant topics and without any delusional content, paranoid ideations or grandiosity; denies any SI/HI. There is no evidence of perceptual disturbance. Patients insight and judgment appear intact. Assessment & Plan Assessment & Plan (1) Adjustment disorder with mixed disturbance of emotions and conduct: Status: Acute Code(s): F43.25 - Adjustment disorder with mixed disturbance of emotions and conduct (2) PTSD (post-traumatic stress disorder): Status: Acute Code(s): F43.10 - Post-traumatic stress disorder, unspecified (3) MDD (major depressive disorder), recurrent episode, mild: Status: Acute Code(s): F33.0 - Major depressive disorder, recurrent, mild Plan Patient is a 33-year-old female with history of PTSD, anxiety and depression who presents following suicide attempt via overdose, step-down from medical floor, in the face of stress of losing beloved job. Patient reports that despite anxiety/mild depression, Prozac 20 mg has been sufficient. Patient works 3rd shift at [employer] for the past 7 years; although work has been stressful since there is a small clique that bullies peers, she has otherwise truly enjoyed working there feeling as it has been a 2nd family to her. Patient reports that a few months ago she climbed up on a Rafter to fix something, which was against policy and considered unsafe; at that time the incident was discussed with security/management to she apologized; nothing more was set about it and patient reports that except for this 1 incident, she has a very strong work record which management acknowledged. 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 They gave no other reason for her firing. Patient said she always feared being fired and had had a plan in place should this occur. She immediately went home, took an overdose of Benadryl and started walking out into traffic, picked up by police who brought her to ED. Although at the time she wanted to , she says she is very glad she is alive now and feels badly that she has worried her mother with whom she is close. She says she will never attempt suicide again, having tried once before year ago followed another work-related stressful event. Patient feels that Prozac 20 mg has been overall helpful enough and does not want to increase; she does not want therapy, saying she does not want to talk to a stranger about her problems. Patient endorses history of trauma and subsequent hypervigilance; denies any AVH or paranoid delusional thinking (and none could be solicited); denies any HI, manic episodes or drug/alcohol abuse. She reiterates that this incident has passed, she does not want to hurt herself at all and his asking for discharge. IMPRESSION: seems to have some dysthymia, anxiety, moderately controlled with fluoxetine. Pt found a lot of meaning in her work and being fired seems to have resulted in a serious injury. Not only does she feel loss from surrogate family, but she feels unsupported/undefended by peers whom she say have bullied her. Patient is minimizing incident for which she was medically hospitalized, saying she's better, but refusing treatment, therapy/aftercare, groups on unit, and has not yet talked w/ her mother despite being medically hospitalized for several days... instead insisting she is safe and wanting discharge today. 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 -will admit, monitor, gather collateral Plan: CV Q 15 minute checks Continue Prozac 20 mg daily Gather collateral Patient educated on: diagnosis, medication risk/benefits and therapeutic strategies Informed Consent: understands and further education needed Reason for continued inpatient stay Substantial Risk for: rapid decompensation Statement Statement: I have reviewed the history and physical and performed a pertinent examination on my patient. No changes have occurred unless specified. If the History and Physical was not performed prior to admission, the Hospitalist's service will be consulted for completing the admission physical. Time Spent With Patient Time: Total time managing care of this patient today ____ minutes.
[2023-12-20 18:00] VITALS: BP 108/61; PULSE 106; RESP 18; TEMP 37; O2SAT 97
[2023-12-21 09:10] VITALS: BP 111/66; PULSE 90; RESP 18; TEMP 36.7; O2SAT 99
--- NOTE | 2023-12-21 16:43 | P.PNPSI_ITS ---
Subjective Subjective Date of Service: 01/23/24 Reason For Visit: SI Interim History: met with patient; discussed with team pt lying in bed, awake on approach. She says she's feeling fine and would like to go home. She agrees that her past trauma is likely effecting her more than she realizes; also, agreed discrepancy between her resiliency and low self- esteem. She explained how she was bullied and has felt marginalized all her life; feels that work let her down since they never defended her from being bullied. Pt adamantly want discharge, though has not signed 3 day; she still has not called her mother, saying she's worried she'll add to her stress. Says she's not going to go to groups; does not want help getting a therapist...to credit underwriter she said she's not going to go home and hurt herself, that she will not attempt again. Later credit underwriter found she has refused her Prozac yesterday or today. She reported to Nurse that she'll start taking it again once she gets home. She also said to nurse, regarding suicide, that i wont do it the same way next time... rather than confirming she'll never attempt again. SW talked w/ mother who said patient has had plans to end her life for a long time... and that she is overall unhappy with her life Mental Status Exam Mental Status Exam Narrative: Pt is alert and oriented; behavior is isolative, somewhat superficial, c kamryn...not uncooperative, but somewhat restive to tx; patient is not in distress; dressed in hospital attire with unkempt hair but adequate hygiene; mood is described as good though affect constricted; eye contact appropriate; Speech is normal rate, volume and prosody and not pressured; psychomotor retardation present; thought process is organized and goal directed; Thought content is on discharge, recent events; otherwise pertinent to relevant topics and without any delusional content, paranoid ideations or grandiosity; denies any SI/HI. There is no evidence of perceptual disturbance. Patients insight and judgment impaired Diagnostics Vital Signs (24Hr): Vital Signs - 24 hr 12/20/23 18:00 12/21/23 09:10 Temperature 98.6 F 98.1 F Pulse Rate 106 H 90 Respiratory Rate 18 18 Blood Pressure 108/61 111/66 Pulse Oximetry 97 99 Oxygen Delivery Method Room Air Room Air Medications Medications Current Medications Acetaminophen (Acetaminophen 325 Mg Tablet) 650 mg PO Q6H PRN PRN Reason: Headache/Pain Mild Scale (1-3) Al Hydroxide/Mg Hydroxide (Magnesium Hydrox/Alum Hydrox 30 Ml Oral.Susp) 30 ml PO Q6H PRN PRN Reason: Heartburn/Nausea Fluoxetine HCl (Fluoxetine Hcl 20 Mg Capsule) 20 mg PO DAILY YONATHAN Last Admin: 12/21/23 09:10 Dose: Not Given Hydroxyzine HCl (Hydroxyzine Hcl 25 Mg Tablet) 25 mg PO Q6H PRN PRN Reason: Anxiety Magnesium Hydroxide (Milk Of Magnesia 30 Ml Oral.Susp) 30 ml PO DAILY PRN PRN Reason: Constipation Senna (Sennosides 8.6 Mg Tablet) 17.2 mg PO BEDTIME PRN PRN Reason: Constipation Trazodone HCl (Trazodone Hcl 50 Mg Tablet) 50 mg PO BEDTIME MRX1 PRN PRN Reason: Insomnia Allergies Allergies Allergy/AdvReac Type Severity Reaction Status Date / Time No Known Allergies Allergy Verified 12/17/23 09:03 Assessment & Plan Assessment & Plan (1) MDD (major depressive disorder), recurrent episode, severe: Status: Acute Code(s): F33.2 - Major depressive disorder, recurrent severe without psychotic features (2) Adjustment disorder with mixed disturbance of emotions and conduct: Status: Acute Code(s): F43.25 - Adjustment disorder with mixed disturbance of emotions and conduct (3) PTSD (post-traumatic stress disorder): Status: Acute Code(s): F43.10 - Post-traumatic stress disorder, unspecified Plan Patient is a 33-year-old female with history of PTSD, anxiety and depression who presents following suicide attempt via overdose, step-down from medical floor, in the face of stress of losing beloved job. Patient reports that despite anxiety/mild depression, Prozac 20 mg has been sufficient. Patient works 3rd shift at [employer] for the past 7 years; although work has been stressful since there is a small clique that bullies peers, she has otherwise truly enjoyed working there feeling as it has been a 2nd family to her. Patient reports that a few months ago she climbed up on a Rafter to fix something, which was against policy and considered unsafe; at that time the incident was discussed with security/management to she apologized; nothing more was set about it and patient reports that except for this 1 incident, she has a very strong work record which management acknowledged. 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 They gave no other reason for her firing. Patient said she always feared being fired and had had a plan in place should this occur. She immediately went home, took an overdose of Benadryl and started walking out into traffic, picked up by police who brought her to ED. Although at the time she wanted to , she says she is very glad she is alive now and feels badly that she has worried her mother with whom she is close. She says she will never attempt suicide again, having tried once before year ago followed another work-related stressful event. Patient feels that Prozac 20 mg has been overall helpful enough and does not want to increase; she does not want therapy, saying she does not want to talk to a stranger about her problems. Patient endorses history of trauma and subsequent hypervigilance; denies any AVH or paranoid delusional thinking (and none could be solicited); denies any HI, manic episodes or drug/alcohol abuse. She reiterates that this incident has passed, she does not want to hurt herself at all and his asking for discharge. IMPRESSION: seems to have some dysthymia, anxiety, moderately controlled with fluoxetine. Pt found a lot of meaning in her work and being fired seems to have resulted in a serious injury. Not only does she feel loss from surrogate family, but she feels unsupported/undefended by peers whom she say have bullied her. Patient is minimizing incident for which she was medically hospitalized, saying she's better, but refusing treatment, therapy/aftercare, groups on unit, and has not yet talked w/ her mother despite being medically hospitalized for several days... instead insisting she is safe and wanting discharge today. Pt gave credit underwriter and SW present verbal permission to call and discuss case with her mother providing her name and phone number (Kyra Lucio [phone]). -will admit, monitor, gather collateral (confirmed last hospitalization March 2023) Hospital course: 12/20 wants to go home; says safe; discussed hx of bullying, low self esteem has not called her mother, saying she's worried she'll add to her stress; anniversary of sisters refuses to go to groups, has refused Prozac for past 2 days; does not want aftercare or therapist told credit underwriter will never again make future attempts, however, told nurse, i wont do it the same way next time... SW talked w/ mother who said patient has had plans to end her life for a long time... and that she is overall unhappy with her life -pt remains minimizing attempt; making disconnected statements regarding her safety; not taking Prozac...not safe for dc at this time Plan: CV Q 15 minute checks Continue Prozac 20 mg daily Gather collateral Patient educated on: diagnosis and medication risk/benefits Informed Consent: understands and further education needed Reason for continued inpatient stay Substantial Risk for: harm to self and rapid decompensation Time Spent With Patient Time: Total time managing care of this patient today ____ minutes.
[2023-12-21 19:56] VITALS: BP 98/54; PULSE 89; RESP 18; TEMP 37; O2SAT 99
[2023-12-22 08:37] VITALS: BP 135/73; PULSE 95; RESP 18; TEMP 36.4; O2SAT 96
--- NOTE | 2023-12-22 17:45 | HO.PSYCHPN ---
Subjective Subjective Date of Service: 12/22/23 Reason For Visit: SI Subjective Notes: 3 Day Healthcare Proxy: No Guardianship: No Medical Problems Affecting Mental Status: No Interim History: 33 yo AA patient who presents s/p what she describes as impulsive od on benadryl after being fired from job Sunday- Reports that was fired for something she did 6 months ago which they could have fired her for 6 months ago but now seems to be about interpersonal conflicts at work with a few others- who have been there a couple years- pt herself has worked there 7 years without issue- Pt is worried about her mother and so wants to go home- Mom suffers from diabetes, depression, and mobility issues hip problem and arthritis which is why she is not engaging in care- Also happens to be anniversary of her sister's from accidental od This 1/2 sister was (raped by pt's father) and was older- worked in mental health field- which has turned patient off of getting therapist. Nursing reported that she would be by next year and next time would find other ways to make suicide attempt- Pt tells provider she told nurse that in jest. Though she is aware she can't joke like that to psych nurse on psychiatric unit. Left her house after od as she didn't want her mother to see her like that Medication Compliance: No (not taking medications - ) Side effects from medications: No Attending Groups: No (suggested pt get more involved - ) Review of Systems Acute medical concerns: No Medical Review of Systems: unchanged Mental Status Exam Mental Status Exam Patient Appearance: Well Grooomed, Fatigued and Appropriate Patient Orientation: Person, Place, Time and Situation Level of Consciousness: Awake and Appropriate Patient Behavior: Appropriate, Passive and Resistive to Care Mood Description: Withdrawn and Blunted Patient Cognition Impaired: No Ability to Follow Directions: Fair Speech Pattern: Clear Hallucinations: None Delusions: Not Present Thought Process: Intact Thought Content: positive for Intact Depressive Symptoms: Isolating-Friends/Family (not very social outside of work and taking care of mom - ) Judgement: Fair Diagnostics Vital Signs (24Hr): Vital Signs - 24 hr 12/21/23 19:56 12/22/23 08:37 Temperature 98.6 F 97.5 F Pulse Rate 89 95 Respiratory Rate 18 18 Blood Pressure 98/54 L 135/73 Pulse Oximetry 99 96 Oxygen Delivery Method Room Air Room Air Medications Medications Current Medications Acetaminophen (Acetaminophen 325 Mg Tablet) 650 mg PO Q6H PRN PRN Reason: Headache/Pain Mild Scale (1-3) Al Hydroxide/Mg Hydroxide (Magnesium Hydrox/Alum Hydrox 30 Ml Oral.Susp) 30 ml PO Q6H PRN PRN Reason: Heartburn/Nausea Fluoxetine HCl (Fluoxetine Hcl 20 Mg Capsule) 20 mg PO DAILY YONATHAN Last Admin: 12/22/23 08:58 Dose: Not Given Hydroxyzine HCl (Hydroxyzine Hcl 25 Mg Tablet) 25 mg PO Q6H PRN PRN Reason: Anxiety Magnesium Hydroxide (Milk Of Magnesia 30 Ml Oral.Susp) 30 ml PO DAILY PRN PRN Reason: Constipation Senna (Sennosides 8.6 Mg Tablet) 17.2 mg PO BEDTIME PRN PRN Reason: Constipation Trazodone HCl (Trazodone Hcl 50 Mg Tablet) 50 mg PO BEDTIME MRX1 PRN PRN Reason: Insomnia Allergies Allergies Allergy/AdvReac Type Severity Reaction Status Date / Time No Known Allergies Allergy Verified 12/17/23 09:03 Assessment & Plan Assessment & Plan (1) MDD (major depressive disorder), recurrent episode, severe: Status: Acute Code(s): F33.2 - Major depressive disorder, recurrent severe without psychotic features Assessment and Plan: unclear that she had prior sys of this (2) Adjustment disorder with mixed disturbance of emotions and conduct: Status: Acute Code(s): F43.25 - Adjustment disorder with mixed disturbance of emotions and conduct Assessment and Plan: 3/2 seems on track with the dx as well (3) PTSD (post-traumatic stress disorder): Status: Acute Code(s): F43.10 - Post-traumatic stress disorder, unspecified Assessment and Plan: 3/2- appropriate dx Plan Patient is a 33-year-old female with history of PTSD, anxiety and depression who presents following suicide attempt via overdose, step-down from medical floor, in the face of stress of losing beloved job. Patient reports that despite anxiety/mild depression, Prozac 20 mg has been sufficient. Patient works 3rd shift at [employer] for the past 7 years; although work has been stressful since there is a small clique that bullies peers, she has otherwise truly enjoyed working there feeling as it has been a 2nd family to her. Patient reports that a few months ago she climbed up on a Rafter to fix something, which was against policy and considered unsafe; at that time the incident was discussed with security/management to she apologized; nothing more was set about it and patient reports that except for this 1 incident, she has a very strong work record which management acknowledged. 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 They gave no other reason for her firing. Patient said she always feared being fired and had had a plan in place should this occur. She immediately went home, took an overdose of Benadryl and started walking out into traffic, picked up by police who brought her to ED. Although at the time she wanted to , she says she is very glad she is alive now and feels badly that she has worried her mother with whom she is close. She says she will never attempt suicide again, having tried once before year ago followed another work-related stressful event. Patient feels that Prozac 20 mg has been overall helpful enough and does not want to increase; she does not want therapy, saying she does not want to talk to a stranger about her problems. Patient endorses history of trauma and subsequent hypervigilance; denies any AVH or paranoid delusional thinking (and none could be solicited); denies any HI, manic episodes or drug/alcohol abuse. She reiterates that this incident has passed, she does not want to hurt herself at all and his asking for discharge. IMPRESSION: seems to have some dysthymia, anxiety, moderately controlled with fluoxetine. Pt found a lot of meaning in her work and being fired seems to have resulted in a serious injury. Not only does she feel loss from surrogate family, but she feels unsupported/undefended by peers whom she say have bullied her. Patient is minimizing incident for which she was medically hospitalized, saying she's better, but refusing treatment, therapy/aftercare, groups on unit, and has not yet talked w/ her mother despite being medically hospitalized for several days... instead insisting she is safe and wanting discharge today. Pt gave administrative underwriter and SW present verbal permission to call and discuss case with her mother providing her name and phone number (Kyra Lucio [phone]). -will admit, monitor, gather collateral (confirmed last hospitalization March 2023) Hospital course: 12/20 wants to go home; says safe; discussed hx of bullying, low self esteem has not called her mother, saying she's worried she'll add to her stress; anniversary of sisters refuses to go to groups, has refused Prozac for past 2 days; does not want aftercare or therapist told administrative underwriter will never again make future attempts, however, told nurse, i wont do it the same way next time... SW talked w/ mother who said patient has had plans to end her life for a long time... and that she is overall unhappy with her life -pt remains minimizing attempt; making disconnected statements regarding her safety; not taking Prozac...not safe for dc at this time Plan: CV Q 15 minute checks Continue Prozac 20 mg daily Gather collateral Patient educated on: therapeutic strategies Informed Consent: further education needed Reason for continued inpatient stay Substantial Risk for: harm to self and rapid decompensation Time Spent With Patient Time: Total time managing care of this patient today ____ minutes.
[2023-12-22 18:00] VITALS: BP 119/67; PULSE 97; TEMP 36.8; O2SAT 97
[2023-12-23 08:05] VITALS: BP 144/78; PULSE 104; RESP 16; TEMP 36.3; O2SAT 98
--- NOTE | 2023-12-23 11:11 | P.PNPSI_ITS ---
Subjective Subjective Date of Service: 12/23/23 Reason For Visit: SI Subjective Notes: 3 Day Healthcare Proxy: No Guardianship: No Medical Problems Affecting Mental Status: No Interim History: 33 yo female who reports it is clear that she only made SA due to being fired Sunday- it was not expected and she was angry about it because she had done the unsafe behavior at work 6 months prior and where now choosing to fire her because of conflicts with these 3 people at work who many others don't get along with either- She is future oriented again as her plan is to spend some quality time with her mother and then in 2 months reapply to [facility]- When asked about her leaving [facility]- she says she does get anxious around people after a certain time- discussed social phobia with her- which she agrees she may have. Also reports she stopped her fluoxetine on the day she was fired sunday - Didn't see the point to taking it and still doesn't- if it was just to get along with 3 folks at work who were problematic- agrees she needs to have a therapist but doesn't feel ready to commit to that. Mentioned to patient that it might be that the Sunday team might want a family meeting with her and mother before dc nursing noticed odd diet- only ate pepperoni off pizza, doesn't like greens- reports being a picky eater Medication Compliance: No Side effects from medications: No Attending Groups: No Review of Systems Acute medical concerns: No Medical Review of Systems: unchanged Mental Status Exam Mental Status Exam Patient Appearance: Well Grooomed and Appropriate Patient Orientation: Person, Place, Time and Situation Level of Consciousness: Awake Patient Behavior: Appropriate, Cooperative and Resistive to Care Mood Description: Calm Affect Description: Withdrawn Patient Cognition Impaired: No Ability to Follow Directions: Fair Speech Pattern: Clear Hallucinations: None Delusions: Not Present Thought Process: Intact Thought Content: positive for Goal Oriented Judgement: Fair Diagnostics Vital Signs (24Hr): Vital Signs - 24 hr 12/22/23 18:00 12/23/23 08:05 Temperature 98.3 F 97.3 F Pulse Rate 97 104 H Respiratory Rate 16 Blood Pressure 119/67 144/78 H Pulse Oximetry 97 98 Oxygen Delivery Method Room Air Room Air Medications Medications Current Medications Acetaminophen (Acetaminophen 325 Mg Tablet) 650 mg PO Q6H PRN PRN Reason: Headache/Pain Mild Scale (1-3) Al Hydroxide/Mg Hydroxide (Magnesium Hydrox/Alum Hydrox 30 Ml Oral.Susp) 30 ml PO Q6H PRN PRN Reason: Heartburn/Nausea Fluoxetine HCl (Fluoxetine Hcl 20 Mg Capsule) 20 mg PO DAILY YONATHAN Last Admin: 12/23/23 09:46 Dose: Not Given Hydroxyzine HCl (Hydroxyzine Hcl 25 Mg Tablet) 25 mg PO Q6H PRN PRN Reason: Anxiety Magnesium Hydroxide (Milk Of Magnesia 30 Ml Oral.Susp) 30 ml PO DAILY PRN PRN Reason: Constipation Senna (Sennosides 8.6 Mg Tablet) 17.2 mg PO BEDTIME PRN PRN Reason: Constipation Trazodone HCl (Trazodone Hcl 50 Mg Tablet) 50 mg PO BEDTIME MRX1 PRN PRN Reason: Insomnia Allergies Allergies Allergy/AdvReac Type Severity Reaction Status Date / Time No Known Allergies Allergy Verified 12/17/23 09:03 Assessment & Plan Assessment & Plan (1) MDD (major depressive disorder), recurrent episode, severe: Status: Acute Code(s): F33.2 - Major depressive disorder, recurrent severe without psychotic features Assessment and Plan: unclear that she had prior sys of this (2) Adjustment disorder with mixed disturbance of emotions and conduct: Status: Acute Code(s): F43.25 - Adjustment disorder with mixed disturbance of emotions and conduct Assessment and Plan: 3/2 seems on track with the dx as well (3) PTSD (post-traumatic stress disorder): Status: Acute Code(s): F43.10 - Post-traumatic stress disorder, unspecified Assessment and Plan: 3/2- appropriate dx (4) Social anxiety disorder: Status: Acute Code(s): F40.10 - Social phobia, unspecified Assessment and Plan: discussed with pt Plan Patient is a 33-year-old female with history of PTSD, anxiety and depression who presents following suicide attempt via overdose, step-down from medical floor, in the face of stress of losing beloved job. Patient reports that despite anxiety/mild depression, Prozac 20 mg has been sufficient. Patient works 3rd shift at [employer] for the past 7 years; although work has been stressful since there is a small clique that bullies peers, she has otherwise truly enjoyed working there feeling as it has been a 2nd family to her. Patient reports that a few months ago she climbed up on a [place] to fix something, which was against policy and considered unsafe; at that time the incident was discussed with security/management to she apologized; nothing more was set about it and patient reports that except for this 1 incident, she has a very strong work record which management acknowledged. 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 They gave no other reason for her firing. Patient said she always feared being fired and had had a plan in place should this occur. She immediately went home, took an overdose of Benadryl and started walking out into traffic, picked up by police who brought her to ED. Although at the time she wanted to , she says she is very glad she is alive now and feels badly that she has worried her mother with whom she is close. She says she will never attempt suicide again, having tried once before year ago followed another work-related stressful event. Patient feels that Prozac 20 mg has been overall helpful enough and does not want to increase; she does not want therapy, saying she does not want to talk to a stranger about her problems. Patient endorses history of trauma and subsequent hypervigilance; denies any AVH or paranoid delusional thinking (and none could be solicited); denies any HI, manic episodes or drug/alcohol abuse. She reiterates that this incident has passed, she does not want to hurt herself at all and his asking for discharge. IMPRESSION: seems to have some dysthymia, anxiety, moderately controlled with fluoxetine. Pt found a lot of meaning in her work and being fired seems to have resulted in a serious injury. Not only does she feel loss from surrogate family, but she feels unsupported/undefended by peers whom she say have bullied her. Patient is minimizing incident for which she was medically hospitalized, saying she's better, but refusing treatment, therapy/aftercare, groups on unit, and has not yet talked w/ her mother despite being medically hospitalized for several days... instead insisting she is safe and wanting discharge today. Pt gave advertising copywriter and SW present verbal permission to call and discuss case with her mother providing her name and phone number (Kyra Lucio [phone]). -will admit, monitor, gather collateral (confirmed last hospitalization March 2023) Hospital course: 12/20 wants to go home; says safe; discussed hx of bullying, low self esteem has not called her mother, saying she's worried she'll add to her stress; anniversary of sisters refuses to go to groups, has refused Prozac for past 2 days; does not want aftercare or therapist told advertising copywriter will never again make future attempts, however, told nurse, i wont do it the same way next time... SW talked w/ mother who said patient has had plans to end her life for a long time... and that she is overall unhappy with her life -pt remains minimizing attempt; making disconnected statements regarding her safety; not taking Prozac...not safe for dc at this time Plan: CV Q 15 minute checks Continue Prozac 20 mg daily Gather collateral Patient educated on: diagnosis, medication risk/benefits and therapeutic strategies Informed Consent: understands and further education needed Reason for continued inpatient stay Substantial Risk for: harm to self and rapid decompensation Time Spent With Patient Time: Total time managing care of this patient today ____ minutes.
[2023-12-23 18:00] VITALS: BP 119/76; PULSE 100; TEMP 37.1; O2SAT 98
[2023-12-24 08:12] VITALS: BP 109/64; PULSE 78; RESP 16; O2SAT 99
[2023-12-24 09:26] VITALS: TEMP 36.9
--- NOTE | 2023-12-24 10:26 | P.PNPSI_ITS ---
Subjective Subjective Date of Service: 12/24/23 Reason For Visit: SI Interim History: met with patient; discussed with team; reviewed chart -said talked with mom on Sunday which was helpful -discussed mom's concern expressed to SW, about having had suicide plans for long time....she said it's due to comments she intermittently makes in passing such as you'll miss me when i'm gone... -acknowledged she made comment to nurse that i wont do it the same way next time... She does not know why she said that, maybe because feeling hopeless at the time? she now says I'm done with it... referring to attempting suicide...says there is too much for her to do in life and talked about pr otective factors of her mom, nieces and nephews Discussed chronic thoughts of not being needed or wanted and how she is vulnerable to being triggered into hopelessness...she also has moments when she challenges this idea; talked about how these feelings have effected her, relationships, other aspects of her life. She can also see how she's assumed others felt this way about her but really these are just her own thoughts and therefore can learn to think differently. Still she is ambivalent about starting therapy, saying she will but on her own in a few months. she has not been taking prozac....says it was only because feeling anxious at work due to the trio of bullies there and now, not at work no need. With much discussion she was willing to consider that she may have an underlying a nxiety/depression separate from these bullies, which makes her vulnerable to SI. Still, she says she wants a break from it... and won't be restarting it at this time. Pt wants discharge; discussed 3 day notice but does not want to sign at this time. Upset she is not being discharged today, pt said she'll refuse to go to groups and will just stay in her room and walked off to do so Mental Status Exam Mental Status Exam Narrative: Pt is alert and oriented; behavior is more cooperative, engaged; less isolative, somewhat superficial, calm...not uncooperative, but somewhat restive to tx; patient is not in distress; dressed in hospital attire with unkempt hair but adequate hygiene; mood is described as good though affect constricted; eye contact appropriate; Speech is normal rate, volume and prosody and not pressured; psychomotor retardation present; thought process is organized and goal directed; Thought content is on discharge, recent events; otherwise pertinent to relevant topics and without any delusional content, paranoid ideations or grandiosity; denies any SI/HI. There is no evidence of perceptual disturbance. Patients insight and judgment impaired Diagnostics Vital Signs (24Hr): Vital Signs - 24 hr 12/23/23 18:00 12/24/23 08:12 12/24/23 09:26 Temperature 98.8 F 98.4 F Pulse Rate 100 78 Respiratory Rate 16 Blood Pressure 119/76 109/64 Pulse Oximetry 98 99 Oxygen Delivery Method Room Air Room Air Medications Medications Current Medications Acetaminophen (Acetaminophen 325 Mg Tablet) 650 mg PO Q6H PRN PRN Reason: Headache/Pain Mild Scale (1-3) Al Hydroxide/Mg Hydroxide (Magnesium Hydrox/Alum Hydrox 30 Ml Oral.Susp) 30 ml PO Q6H PRN PRN Reason: Heartburn/Nausea Fluoxetine HCl (Fluoxetine Hcl 20 Mg Capsule) 20 mg PO DAILY YONATHAN Last Admin: 12/24/23 08:30 Dose: Not Given Hydroxyzine HCl (Hydroxyzine Hcl 25 Mg Tablet) 25 mg PO Q6H PRN PRN Reason: Anxiety Magnesium Hydroxide (Milk Of Magnesia 30 Ml Oral.Susp) 30 ml PO DAILY PRN PRN Reason: Constipation Senna (Sennosides 8.6 Mg Tablet) 17.2 mg PO BEDTIME PRN PRN Reason: Constipation Trazodone HCl (Trazodone Hcl 50 Mg Tablet) 50 mg PO BEDTIME MRX1 PRN PRN Reason: Insomnia Allergies Allergies Allergy/AdvReac Type Severity Reaction Status Date / Time No Known Allergies Allergy Verified 12/17/23 09:03 Assessment & Plan Assessment & Plan (1) MDD (major depressive disorder), recurrent episode, severe: Status: Acute Code(s): F33.2 - Major depressive disorder, recurrent severe without psychotic features Assessment and Plan: unclear that she had prior sys of this (2) Adjustment disorder with mixed disturbance of emotions and conduct: Status: Acute Code(s): F43.25 - Adjustment disorder with mixed disturbance of emotions and conduct Assessment and Plan: 3/2 seems on track with the dx as well (3) PTSD (post-traumatic stress disorder): Status: Acute Code(s): F43.10 - Post-traumatic stress disorder, unspecified Assessment and Plan: 3/- appropriate dx (4) Social anxiety disorder: Status: Acute Code(s): F40.10 - Social phobia, unspecified Assessment and Plan: discussed with pt Plan Patient is a 33-year-old female with history of PTSD, anxiety and depression who presents following suicide attempt via overdose, step-down from medical floor, in the face of stress of losing beloved job. Patient reports that despite anxiety/mild depression, Prozac 20 mg has been sufficient. Patient works 3rd shift at [employer] for the past 7 years; although work has been stressful since there is a small clique that bullies peers, she has otherwise truly enjoyed working there feeling as it has been a 2nd family to her. Patient reports that a few months ago she climbed up on a [place] to fix something, which was against policy and considered unsafe; at that time the incident was discussed with security/management to she apologized; nothing more was set about it and patient reports that except for this 1 incident, she has a very strong work record which management acknowledged. Patient thinks that this clique however has said negative things about her to floor managers and this past Sunday, she was called into her forest supervisor's office and her job terminated because of the incident that happened a few months ago. They gave no other reason for her firing. Patient said she always feared being fired and had had a plan in place should this occur. She immediately went home, took an overdose of Benadryl and started walking out into traffic, picked up by police who brought her to ED. Although at the time she wanted to , she says she is very glad she is alive now and feels badly that she has worried her mother with whom she is close. She says she will never attempt suicide again, having tried once before year ago followed another work-related stressful event. Patient feels that Prozac 20 mg has been overall helpful enough and does not want to increase; she does not want therapy, saying she does not want to talk to a stranger about her problems. Patient endorses history of trauma and subsequent hypervigilance; denies any AVH or paranoid delusional thinking (and none could be solicited); denies any HI, manic episodes or drug/alcohol abuse. She reiterates that this incident has passed, she does not want to hurt herself at all and his asking for discharge. IMPRESSION: seems to have some dysthymia, anxiety, moderately controlled with fluoxetine. Pt found a lot of meaning in her work and being fired seems to have resulted in a serious injury. Not only does she feel loss from surrogate family, but she feels unsupported/undefended by peers whom she say have bullied her. Patient is minimizing incident for which she was medically hospitalized, saying she's better, but refusing treatment, therapy/aftercare, groups on unit, and has not yet talked w/ her mother despite being medically hospitalized for several days... instead insisting she is safe and wanting discharge today. Pt gave freelance writer and SW present verbal permission to call and discuss case with her mother providing her name and phone number (Kyra Lucio [phone]). -will admit, monitor, gather collateral (confirmed last hospitalization March 2023) Hospital course: 12/20 wants to go home; says safe; discussed hx of bullying, low self esteem has not called her mother, saying she's worried she'll add to her stress; anniversary of sisters refuses to go to groups, has refused Prozac for past 2 days; does not want aftercare or therapist told freelance writer will never again make future attempts, however, told nurse, i wont do it the same way next time... SW talked w/ mother who said patient has had plans to end her life for a long time... and that she is overall unhappy with her life -pt minimizing attempt; making disconnected statements regarding her safety; not taking Prozac...not safe for dc at this time 3/ over weekend, remained isolative, refusing Prozac, not eating much, staying in med; made SI comment on Sunday. Today, however she is out of bed and dressed, talking more and showing some increased insight. Still minimizing past even and what it will take to regain and remain stable, refusing meds and therapy...and avoiding most groups. She maintains that she is not suicidal and won't ever try suicide again, wants to return to mothers, ..Other than pushing for discharge, she is open to 1:1 psychotherapy sessions which seem to be effective and help her to address issues not previously disclosed-pt has said herself she is finding theses sessions helpful and make her more open to therapy as an outpt. Will have her remain on the unit for a few more days to monitor for continued stability and for more 1:1 therapy; hopefully she'll be open to more dispo planning Plan: CV Q 15 minute checks Continue Prozac 20 mg daily -encourage groups; will see if willing to do worksheets Patient educated on: diagnosis, medication risk/benefits and therapeutic strategies Informed Consent: understands and further education needed Reason for continued inpatient stay Substantial Risk for: rapid decompensation Time Spent With Patient Time: Total time managing care of this patient today ____ minutes.
[2023-12-24 20:00] VITALS: BP 119/69; PULSE 95; RESP 18; TEMP 37; O2SAT 98
[2023-12-25 08:00] VITALS: BP 118/53; PULSE 100; RESP 18; TEMP 36.7; O2SAT 99
[2023-12-25] MEDS: FLUoxetine HCl 20 MG CAPSULE PO (08:46)
--- NOTE | 2023-12-25 12:35 | P.PNPSI_ITS ---
Subjective Subjective Date of Service: 12/25/23 Reason For Visit: SI Interim History: met with patient; discussed with team pt feeling a little better; took prozac today saying she realizes she probably needs it. Pt said yesterday she was angry at first at not being discharged, but later processed feelings and came to conclusion it was good for her to stay on unit longer and dr/sw are right in wanting her to stay. Pt doing worksheets on DBT/CBT. Today, did CBT exercise which resonated with patient; remains w/ out any SI and feels safe. More open to therapist on discharge. Mental Status Exam Mental Status Exam Narrative: Pt is alert and oriented; behavior is cooperative, more engaged, calm; patient is not in distress; dressed in casual attire, adequate hygiene; mood is describe d as ok though affect congruent; eye contact appropriate; Speech is normal rate, volume and prosody and not pressured; no psychomotor retardation present; thought process is organized and goal directed; Thought content is on her life, treatment, recent events; otherwise pertinent to relevant topics and without any delusional content, paranoid ideations or grandiosity; denies any SI/HI. There is no evidence of perceptual disturbance. Patients insight and judgment improved and fair Diagnostics Vital Signs (24Hr): Vital Signs - 24 hr 12/24/23 20:00 12/25/23 08:00 Temperature 98.6 F 98.0 F Pulse Rate 95 100 Respiratory Rate 18 18 Blood Pressure 119/69 118/53 L Pulse Oximetry 98 99 Oxygen Delivery Method Room Air Room Air Medications Medications Current Medications Acetaminophen (Acetaminophen 325 Mg Tablet) 650 mg PO Q6H PRN PRN Reason: Headache/Pain Mild Scale (1-3) Al Hydroxide/Mg Hydroxide (Magnesium Hydrox/Alum Hydrox 30 Ml Oral.Susp) 30 ml PO Q6H PRN PRN Reason: Heartburn/Nausea Fluoxetine HCl (Fluoxetine Hcl 20 Mg Capsule) 20 mg PO DAILY YONATHAN Last Admin: 12/25/23 08:46 Dose: 20 mg Hydroxyzine HCl (Hydroxyzine Hcl 25 Mg Tablet) 25 mg PO Q6H PRN PRN Reason: Anxiety Magnesium Hydroxide (Milk Of Magnesia 30 Ml Oral.Susp) 30 ml PO DAILY PRN PRN Reason: Constipation Senna (Sennosides 8.6 Mg Tablet) 17.2 mg PO BEDTIME PRN PRN Reason: Constipation Trazodone HCl (Trazodone Hcl 50 Mg Tablet) 50 mg PO BEDTIME MRX1 PRN PRN Reason: Insomnia Allergies Allergies Allergy/AdvReac Type Severity Reaction Status Date / Time No Known Allergies Allergy Verified 12/17/23 09:03 Assessment & Plan Assessment & Plan (1) MDD (major depressive disorder), recurrent episode, severe: Status: Acute Code(s): F33.2 - Major depressive disorder, recurrent severe without psychotic features Assessment and Plan: unclear that she had prior sys of this (2) Adjustment disorder with mixed disturbance of emotions and conduct: Status: Acute Code(s): F43.25 - Adjustment disorder with mixed disturbance of emotions and conduct Assessment and Plan: 3/2 seems on track with the dx as well (3) PTSD (post-traumatic stress disorder): Status: Acute Code(s): F43.10 - Post-traumatic stress disorder, unspecified Assessment and Plan: 3/2- appropriate dx (4) Social anxiety disorder: Status: Acute Code(s): F40.10 - Social phobia, unspecified Assessment and Plan: discussed with pt Plan Patient is a 33-year-old female with history of PTSD, anxiety and depression who presents following suicide attempt via overdose, step-down from medical floor, in the face of stress of losing beloved job. Patient reports that despite anxiety/mild depression, Prozac 20 mg has been sufficient. Patient works 3rd shift at [employer] for the past 7 years; although work has been stressful since there is a small clique that bullies peers, she has otherwise truly enjoyed working there feeling as it has been a 2nd family to her. Patient reports that a few months ago she climbed up on a [place] to fix something, which was against policy and considered unsafe; at that time the incident was discussed with security/management to she apologized; nothing more was set about it and patient reports that except for this 1 incident, she has a very strong work record which management acknowledged. Patient thinks that this clique however has said negative things about her to floor managers and this past Sunday, she was called into her [employer] supervisor's office and her job terminated because of the incident that happened a few months ago. They gave no other reason for her firing. Patient said she always feared being fired and had had a plan in place should this occur. She immediately went home, took an overdose of Benadryl and started walking out into traffic, picked up by police who brought her to ED. Although at the time she wanted to , she says she is very glad she is alive now and feels badly that she has worried her mother with whom she is close. She says she will never attempt suicide again, having tried once before year ago followed another work-related stressful event. Patient feels that Prozac 20 mg has been overall helpful enough and does not want to increase; she does not want therapy, saying she does not want to talk to a stranger about her problems. Patient endorses history of trauma and subsequent hypervigilance; denies any AVH or paranoid delusional thinking (and none could be solicited); denies any HI, manic episodes or drug/alcohol abuse. She reiterates that this incident has passed, she does not want to hurt herself at all and his asking for discharge. IMPRESSION: seems to have some dysthymia, anxiety, moderately controlled with fluoxetine. Pt found a lot of meaning in her work and being fired seems to have resulted in a serious injury. Not only does she feel loss from surrogate family, but she feels unsupported/undefended by peers whom she say have bullied her. Patient is minimizing incident for which she was medically hospitalized, saying she's better, but refusing treatment, therapy/aftercare, groups on unit, and has not yet talked w/ her mother despite being medically hospitalized for several day s... instead insisting she is safe and wanting discharge today. Pt gave magazine writer and SW present verbal permission to call and discuss case with her mother providing her name and phone number (Kyra Lucio [phone]). -will admit, monitor, gather collateral (confirmed last hospitalization March 2023) Hospital course: 12/20 wants to go home; says safe; discussed hx of bullying, low self esteem has not called her mother, saying she's worried she'll add to her stress; anniversary of sisters refuses to go to groups, has refused Prozac for past 2 days; does not want af tercare or therapist told magazine writer will never again make future attempts, however, told nurse, i wont do it the same way next time... SW talked w/ mother who said patient has had plans to end her life for a long time... and that she is overall unhappy with her life -pt minimizing attempt; making disconnected statements regarding her safety; not taking Prozac...not safe for dc at this time 3/ over weekend, remained isolative, refusing Prozac, not eating much, staying in med; made SI comment on Sunday. Today, however she is out of bed and dressed, talking more and showing some increased insight. Still minimizing past even and what it will take to regain and remain stable, refusing meds and therapy...and avoiding most groups. She maintains that she is not suicidal and won't ever try suicide again, wants to return to mothers, ..Other than pushing for discharge, she is open to 1:1 psychotherapy sessions which seem to be effective and help her to address issues not previously disclosed-pt has said herself she is finding theses sessions helpful and make her more open to therapy as an outpt. Will have her remain on the unit for a few more days to monitor for continued stability and for more 1:1 therapy; hopefully she'll be open to more dispo planning 3/5 pt doing better, more engaged doing worksheets, some groups, took prozac today; more social, in mil[place]; no SI. Plan: CV Q 15 minute checks Continue Prozac 20 mg daily -encourage groups; will see if willing to do worksheets Patient educated on: diagnosis, medication risk/benefits and therapeutic strategies Informed Consent: understands Reason for continued inpatient stay Substantial Risk for: stable for discharge Time Spent With Patient Time: Total time managing care of this patient today ____ minutes.
[2023-12-25 20:12] VITALS: BP 118/53; PULSE 100; RESP 18; TEMP 36.7; O2SAT 99
[2023-12-26 08:00] VITALS: BP 108/54; PULSE 78; RESP 16; TEMP 36.9; O2SAT 100
[2023-12-26] MEDS: FLUoxetine HCl 20 MG CAPSULE PO (08:51)
--- NOTE | 2023-12-26 09:10 | P.PNPSI_ITS ---
Subjective Subjective Date of Service: 12/26/23 Reason For Visit: SI Subjective Notes: Conditional Voluntary Interim History: Reviewed with Dr. Oliva. calm, cooperative. pt reports feeling pretty good today; pt stated, I'm going to take some time off from working and just relax. I want to figure out what I want to do in life and [facility] . denies SI/HI/VH/AH. Medication Compliance: Yes Side effects from medications: No Attending Groups: Yes Review of Systems Constitutional: Reports as per HPI Eyes: Reports as per HPI Reports as per HPI Cardiovascular: Reports as per HPI Respiratory: Reports as per HPI Gastrointestinal: Reports as per HPI Genitourinary: Reports as per HPI Musculoskeletal: Reports as per HPI Skin/Breast: Reports as per HPI Reports as per HPI Psychiatric: Reports as per HPI Endocrine: Reports as per HPI Hematologic/Lymphatic: Reports as per HPI Allergic/Immunologic: Reports as per HPI Mental Status Exam Mental Status Exam Narrative: Pt is alert and oriented; behavior is cooperative, friendly and calm; dressed in casual attire; mood is described as good ; eye contact appropriate; Speech is normal rate, volume and prosody and not pressured; thought process is organized; Thought content is on discharge; denies SI/HI/VH/AH. Diagnostics Vital Signs (24Hr): Vital Signs - 24 hr 12/25/23 20:12 12/26/23 08:00 Temperature 98.0 F 98.4 F Pulse Rate 100 78 Respiratory Rate 18 16 Blood Pressure 118/53 L 108/54 L Pulse Oximetry 99 100 Oxygen Delivery Method Room Air Room Air Medications Medications Current Medications Acetaminophen (Acetaminophen 325 Mg Tablet) 650 mg PO Q6H PRN PRN Reason: Headache/Pain Mild Scale (1-3) Al Hydroxide/Mg Hydroxide (Magnesium Hydrox/Alum Hydrox 30 Ml Oral.Susp) 30 ml PO Q6H PRN PRN Reason: Heartburn/Nausea Fluoxetine HCl (Fluoxetine Hcl 20 Mg Capsule) 20 mg PO DAILY YONATHAN Last Admin: 12/26/23 08:51 Dose: 20 mg Hydroxyzine HCl (Hydroxyzine Hcl 25 Mg Tablet) 25 mg PO Q6H PRN PRN Reason: Anxiety Magnesium Hydroxide (Milk Of Magnesia 30 Ml Oral.Susp) 30 ml PO DAILY PRN PRN Reason: Constipation Senna (Sennosides 8.6 Mg Tablet) 17.2 mg PO BEDTIME PRN PRN Reason: Constipation Trazodone HCl (Trazodone Hcl 50 Mg Tablet) 50 mg PO BEDTIME MRX1 PRN PRN Reason: Insomnia Allergies Allergies Allergy/AdvReac Type Severity Reaction Status Date / Time No Known Allergies Allergy Verified 12/17/23 09:03 Assessment & Plan Assessment & Plan (1) MDD (major depressive disorder), recurrent episode, severe: Status: Acute Code(s): F33.2 - Major depressive disorder, recurrent severe without psychotic features Assessment and Plan: unclear that she had prior sys of this (2) Adjustment disorder with mixed disturbance of emotions and conduct: Status: Acute Code(s): F43.25 - Adjustment disorder with mixed disturbance of emotions and conduct Assessment and Plan: 3/2 seems on track with the dx as well (3) PTSD (post-traumatic stress disorder): Status: Acute Code(s): F43.10 - Post-traumatic stress disorder, unspecified Assessment and Plan: 3/2- appropriate dx (4) Social anxiety disorder: Status: Acute Code(s): F40.10 - Social phobia, unspecified Assessment and Plan: discussed with pt Plan Patient is a 33-year-old female with history of PTSD, anxiety and depression who presents following suicide attempt via overdose, step-down from medical floor, in the face of stress of losing beloved job. Patient reports that despite anxiety/mild depression, Prozac 20 mg has been sufficient. Patient works 3rd shift at [employer] for the past 7 years; although work has been stressful since there is a small clique that bullies peers, she has otherwise truly enjoyed working there feeling as it has been a 2nd family to her. Patient reports that a few months ago she climbed up on a Rafter to fix something, which was against policy and considered unsafe; at that time the incident was discussed with security/management to she apologized; nothing more was set about it and patient reports that except for this 1 incident, she has a very strong work record which management acknowledged. 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 They gave no other reason for her firing. Patient said she always feared being fired and had had a plan in place should this occur. She immediately went home, took an overdose of Benadryl and started w alking out into traffic, picked up by police who brought her to ED. Although at the time she wanted to , she says she is very glad she is alive now and feels badly that she has worried her mother with whom she is close. She says she will never attempt suicide again, having tried once before year ago followed another work-related stressful event. Patient feels that Prozac 20 mg has been overall helpful enough and does not want to increase; she does not want therapy, saying she does not want to talk to a stranger about her problems. Patient endorses history of trauma and subsequent hypervigilance; denies any AVH or paranoid delusional thinking (and none could be solicited); denies any HI, manic episodes or drug/alcohol abuse. She reiterates that this incident has passed, she does not want to hurt herself at all and his asking for discharge. IMPRESSION: seems to have some dysthymia, anxiety, moderately controlled with fluoxetine. Pt found a lot of meaning in her work and being fired seems to have resulted in a serious injury. Not only does she feel loss from surrogate family, but she feels unsupported/undefended by peers whom she say have bullied her. Patient is minimizing incident for which she was medically hospitalized, saying she's better, but refusing treatment, therapy/aftercare, groups on unit, and has not yet talked w/ her mother despite being medically hospitalized for several days... instead insisting she is safe and wanting discharge today. Pt gave typewriter mechanic and SW present verbal permission to call and discuss case with her mother providing her name and phone number (Kyra Lucio [phone]). -will admit, monitor, gather collateral (confirmed last hospitalization March 2023) Hospital course: 12/20 wants to go home; says safe; discussed hx of bullying, low self esteem has not called her mother, saying she's worried she'll add to her stress; anniversary of sisters refuses to go to groups, has refused Prozac for past 2 days; does not want aftercare or therapist told typewriter mechanic will never again make future attempts, however, told nurse, i wont do it the same way next time... SW talked w/ mother who said patient has had plans to end her life for a long time... and that she is overall unhappy with her life -pt minimizing attempt; making disconnected statements regarding her safety; not taking Prozac...not safe for dc at this time 3/ over weekend, remained isolative, refusing Prozac, not eating much, staying in med; made SI comment on Sunday. Today, however she is out of bed and dressed, talking more and showing some increased insight. Still minimizing past even and what it will take to regain and remain stable, refusing meds and therapy...and avoiding most groups. She maintains that she is not suicidal and won't ever try suicide again, wants to return to mothers, ..Other than pushing for discharge, she is open to 1:1 psychotherapy sessions which seem to be effective and help her to address issues not previously disclosed-pt has said herself she is finding theses sessions helpful and make her more open to therapy as an outpt. Will have her remain on the unit for a few more days to monitor for continued stability and for more 1:1 therapy; hopefully she'll be open to more dispo planning 3/5 pt doing better, more engaged doing worksheets, some groups, took prozac today; more social, in milue; no SI. 12/25: continue current tx plan. Plan: CV Q 15 minute checks Continue Prozac 20 mg daily -encourage groups; will see if willing to do worksheets Patient educated on: diagnosis and medication risk/benefits Informed Consent: understands Reason for continued inpatient stay Substantial Risk for: med/psych decompensation Time Spent With Patient Time: Total time managing care of this patient today _20___ minutes.
[2023-12-26 18:00] VITALS: BP 109/66; PULSE 75; TEMP 36.3; O2SAT 100
[2023-12-27] MEDS: FLUoxetine HCl 20 MG CAPSULE PO (08:04)
[2023-12-27 09:17] VITALS: BP 111/68; PULSE 90; RESP 16; TEMP 36.3; O2SAT 99
--- NOTE | 2023-12-27 09:32 | P.DS_ITS ---
DS: Providers Provider Date of Service: 12/27/23 Date of admission: 12/19/23 20:41 Date of discharge: 12/27/23 Primary care physician: Unknown Physician Attending physician on admission: Malachi King Attending physician on discharge: Malachi King DS: Diagnosis Discharge Diagnosis (1) MDD (major depressive disorder), recurrent episode, severe: Status: Acute (2) Adjustment disorder with mixed disturbance of emotions and conduct: Status: Acute (3) PTSD (post-traumatic stress disorder): Status: Acute (4) Social anxiety disorder: Status: Acute DS: Medications Discharge Medications Home Medications: Previous Rx's Medication Instructions Recorded fluoxetine 20 mg tablet 20 mg PO DAILY 30 days #30 tabs 12/27/23 Mental Status Exam Mental Status Exam Narrative: Pt is alert and oriented; behavior is cooperative, more engaged, calm; patient is not in distress; dressed in casual attire, adequate hygiene; mood is shana cribed as ready though affect congruent; eye contact appropriate; Speech is normal rate, volume and prosody and not pressured; no psychomotor retardation present; thought process is organized and goal directed; Thought content is on her life, treatment, recent events; otherwise pertinent to relevant topics and without any delusional content, paranoid ideations or grandiosity; denies any SI/HI. There is no evidence of perceptual disturbance. Patients insight and judgment improved and fair DS: Summary Hospital Course Hospital Course: Patient is a 33-year-old female with history of PTSD, anxiety and depression who presents following suicide attempt via overdose, step-down from medical floor, in the face of stress of losing beloved job. Patient reports that despite anxiety/mild depression, Prozac 20 mg has been sufficient. Patient works 3rd shift at [employer] for the past 7 years; although work has been stressful since there is a small clique that bullies peers, she has otherwise truly enjoyed working there feeling as it has been a 2nd family to her. Patient reports that a few months ago she climbed up on a Rafter to fix something, which was against policy and considered unsafe; at that time the incident was discussed with security/management to she apologized; nothing more was set about it and patient reports that except for this 1 incident, she has a very strong work record which management acknowledged. 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 They gave no other reason for her firing. Patient said she always feared being fired and had had a plan in place should this occur. She immediately went home, took an overdose of Benadryl and started walking out into traffic, picked up by police who brought her to ED. Although at the time she wanted to , she says she is very glad she is alive now and feels badly that she has worried her mother with whom she is close. She says she will never attempt suicide again, having tried once before year ago followed another work-related stressful event. Patient feels that Prozac 20 mg has been overall helpful enough and does not want to increase; she does not want therapy, saying she does not want to talk to a stranger about her problems. Patient endorses history of trauma and subsequent hypervigilance; denies any AVH or paranoid delusional thinking (and none could be solicited); denies any HI, manic episodes or drug/alcohol abuse. She reiterates that this incident has passed, she does not want to hurt herself at all and his asking for discharge. IMPRESSION: seems to have some dysthymia, anxiety, moderately controlled with fluoxetine. Pt found a lot of meaning in her work and being fired seems to have resulted in a serious injury. Not only does she feel loss from surrogate family, but she feels unsupported/undefended by peers whom she say have bullied her. Patient is minimizing incident for which she was medically hospitalized, saying she's better, but refusing treatment, therapy/aftercare, groups on unit, and has not yet talked w/ her mother despite being medically hospitalized for several days... instead insisting she is safe and wanting discharge today. Pt gave typewriter assembly and parts inspector and SW present verbal permission to call and discuss case with her mother providing her name and phone number (Kyra Lucio [phone]). -will admit, monitor, gather collateral (confirmed last hospitalization March 2023) Hospital course: 12/20 wants to go home; says safe; discussed hx of bullying, low self esteem has not called her mother, saying she's worried she'll add to her stress; anniversary of sisters refuses to go to groups, has refused Prozac for past 2 days; does not want aftercare or therapist told typewriter assembly and parts inspector will never again make future attempts, however, told nurse, i wont do it the same way next time... SW talked w/ mother who said patient has had plans to end her life for a long time... and that she is overall unhappy with her life -pt minimizing attempt; making disconnected statements regarding her safety; not taking Prozac...not safe for dc at this time 3/ over weekend, remained isolative, refusing Prozac, not eating much, staying in med; made SI comment on Sunday. Today, however she is out of bed and dressed, talking more and showing some increased insight. Still minimizing past even and what it will take to regain and remain stable, refusing meds and therapy...and avoiding most groups. She maintains that she is not suicidal and won't ever try suicide again, wants to return to mothers, ..Other than pushing for discharge, she is open to 1:1 psychotherapy sessions which seem to be effective and help her to address issues not previously disclosed-pt has said herself she is finding theses sessions helpful and make her more open to therapy as an outpt. Will have her remain on the unit for a few more days to monitor for continued stability and for more 1:1 therapy; hopefully she'll be open to more dispo planning 12/24 pt doing better, denies depression and feels anxiety under control; no SI; more engaged doing worksheets, social with peers. Pt decided to start taking Prozac again and did so today; also demonstrating increased insight, saying she realizes it was a good idea to stay longer on the unit and she's been able to get in touch w/ and process her feelings much more; decided she should get into therapy (says will find therapist herself). pt wants discharge and typewriter assembly and parts inspector agreed. Pt has remained w/out any SI and is future oriented. She has been in good behavioral and impulse control and both insight and judgment have improved. She is returning to live w/ her mother who is very supportive. Pt is not in imminent risk of harm to self or others and is appropriate to return to the community for treatment. Pt's request for discharge honored. Time spent discussing smoking cessation with patient: 3 to 10 minutes Status at Discharge Functional status at discharge: independent ambulation Overall status at discharge: patient is back to baseline Time Spent with Patient Time attestation: Total time managing care of this patient today _40___ minutes. Time spent: Greater than 30 minutes (40 minutes) Discharge Plan Discharge Anticipated Discharge Date/Time: 12/27/23 11:30 Patient Disposition: Home, Self-Care Discharge Diagnosis: MDD, recurrent, severe, in full remission Referrals: [facility] for Therapy and Psychiatry [Other] - 1 Week (Walk-In and bring your hospital discharge folder. M-F 10-12pm) [facility] [Other] - 1 Week (They offer: - An outpatient behavioral health clinic - 14/05 mobile crisis services - Crisis stabilization for youth and adults in person and via telehealth) [facility] Walk-In for Therapy and Psychiatry [Other] - 1 Week (M-F 8am. - 8pm.) Lashanda Sharpe PA [Physician Software Sales Manager] - 1 Week (office will call you with follow-up appointment.) Discharge Medications: Continued fluoxetine 20 mg tablet 20 mg PO DAILY 30 Days Qty: 30 0RF Discharge Orders: Discharge Order (Routine); Ordered 12/27/23 Ordered By: Malachi King Diet: Regular diet Activity on Discharge: As tolerated Stand Alone Forms: Patient Portal Discharge page, Community Support Care Plan Goals: Maintain mood and safe behaviors Take medications as prescribed Practice coping skills Continue with outpatient providers and reach out to them as needed Health Concerns: Mood stability and behaviors Plan of Treatment: Follow up with your PCP, psychiatric provider and other outpatient providers regarding above concerns Take medications as prescribed Assessment: Risk assessment at time of discharge:? Patient was interviewed prior to discharge and found to be fully oriented and without any SI or HI. Patient has improved insight and judgment and wants to continue treatment. Patient is not in imminent risk of harm to self or others and has a safety plan that includes presenting to the closest ER or calling 911 if feeling unsafe.? Patient has been observed closely by nursing and unit staff throughout admission; patient has not engaged in any behaviors that suggest dangerousness to self or others and has demonstrated appropriate behaviors and impulse control Discharge Date/Time: 12/27/23 10:10
== END 2023-12-27 10:10 | disposition home or self-care (01) | DRG 755 ==
PROVIDERS: Admitting Provider Psychiatry & Neurology Psychiatry; Visit Provider Psychiatry & Neurology Psychiatry
DX: F43.10 Post-traumatic stress disorder, unspecified (principal); F33.0 Major depressive disorder, recurrent, mild; F40.10 Social phobia, unspecified; F43.25 Adjustment disorder with mixed disturbance of emotions and conduct; Z79.899 Other long term (current) drug therapy

== ENCOUNTER → 2023-12-19 20:41 | Outpatient (BNV) | payer MEDICAID, OTHER, SELFPAY | PROVIDERS: Admitting Provider Psychiatry & Neurology Psychiatry; Visit Provider Psychiatry & Neurology Psychiatry | DX: F33.2 Major depressive disorder, recurrent severe without psychotic features (principal); F43.25 Adjustment disorder with mixed disturbance of emotions and conduct; F43.11 Post-traumatic stress disorder, acute; F40.10 Social phobia, unspecified | CPT/HCPCS: 99231; 99232 ==